=== PATIENT | male | born 1955 | race Caucasian/White ===

== ENCOUNTER 2016-06-15 17:12 | Inpatient (IN) | payer BC ==
[~2016-06-15] VITALS: Ht 182.9 cm; Wt 93.4 kg
--- NOTE | 2016-06-15 17:14 | NUR ---
Patient to ER bed 8 to gown for evaluation. Side rails up. Report given to La RESENDEZ.
--- NOTE | 2016-06-15 17:18 | NUR ---
Patient to ER C/O hemoptysis. Patient states that he has advanced lung cancer and started to cough bright red blood today. Patient has unreleaved cough reflex. AAOx4, constant coughing with bright red blood expectorant, rhonchi.
--- NOTE | 2016-06-15 17:19 | NUR ---
Room converted to negative pressure. Airborne precautions observed.
[2016-06-15 17:22] VITALS: BP 201/93; PULSE 131; RESP 18; TEMP 97.3; O2SAT 96
--- NOTE | 2016-06-15 17:38 | NUR ---
ER MD Jaeger at bedside for evaluation
[2016-06-15] MEDS ORDERED: NACL 0.9% 1,000 ML IV ONE (17:44)
[2016-06-15 17:57] LABS: BASOPHILS # (AUTO) 0.1 K/uL (0.0-0.2); EOSINOPHILS # (AUTO) 0.2 K/uL (0.0-0.4); HEMATOCRIT 47.9 % (36-54); HEMOGLOBIN 16.3 g/dL (14.0-18.0); LYMPHOCYTES # (AUTO) 1.6 K/uL (1.0-5.5); LYMPHOCYTES % (AUTO) 14.3 % (20.5-51.5); MEAN CORPUSCULAR HEMOGLOBIN 29 pg (27-31); MEAN CORPUSCULAR HGB CONC 34 % (32-36); MEAN CORPUSCULAR VOLUME 84 fL (79.0-98.0); MONOCYTES # (AUTO) 0.9 K/uL (0.0-1.0); MONOCYTES % (AUTO) 8.3 % (1.7-9.3); NEUTROPHILS # (AUTO) 8.6 K/uL (1.8-7.7); NEUTROPHILS % (AUTO) 74.4 % (40.0-70.0); PLATELET COUNT (AUTO) 169 K/uL (130-430); RED BLOOD CELL COUNT(AUTO) 5.67 MIL/uL (4.2-6.2); RED CELL DISTRIBUTION WIDTH 14.1 % (9.0-15.0); WHITE BLOOD COUNT (AUTO) 11.4 K/uL (4.8-10.8)
[2016-06-15 18:01] LABS: CALCIUM 9.5 mg/dL (8.4-11.0); CREATININE 1.64 mg/dL (0.55-1.30); POTASSIUM 3.1 mmol/L (3.5-5.1)
[2016-06-15 18:05] LABS: PROTHROMBIN TIME 11.1 SECS (9.5-12.5)
[2016-06-15 18:07] LABS: ALBUMIN 4.1 g/dL (3.4-4.8); TOTAL BILIRUBIN 0.4 mg/dL (0.0-1.0); TOTAL PROTEIN, SERUM 7.5 g/dL (6.4-8.3)
--- NOTE | 2016-06-15 18:34 | NUR ---
Medication reconciliation completed with information provided by - pill bottles from patient. Any prior medication reconciliation on file was reviewed and corrected.
[2016-06-15] MEDS ORDERED: KCL 20 mEq in 100 mL (PREMIX) 100 ML IV ONE (18:45)
[2016-06-15] MEDS ORDERED: LOSA50TA3 PO (18:55)
[2016-06-15] MEDS ORDERED: ZIA2.5/6.25 PO (18:55)
[2016-06-15] MEDS ORDERED: GLIM4TAB PO (18:55)
[2016-06-15] MEDS ORDERED: METF1000 PO (18:55)
[2016-06-15] MEDS ORDERED: LABETALOL 100 MG/ 20ML VIAL IVP ONE (19:00)
--- NOTE | 2016-06-15 19:19 | NUR ---
Patient will be admitted to care of DR JENKINS. Admitted to TELE unit. Will go to room 135. Belongings list completed. Summary report printed. Report given to MAL.
[2016-06-15 19:22] LABS: BILIRUBIN,URINE NEGATIVE (NEGATIVE); BLOOD, URINE NEGATIVE (NEGATIVE); CLARITY/URINE CLEAR (CLEAR); COLOR,URINE YELLOW (YELLOW); GLUCOSE,URINE NEGATIVE (NEGATIVE); KETONES,URINE NEGATIVE (NEGATIVE); LEUKOCYTE ESTERASE ,URINE NEGATIVE (NEGATIVE); NITRITE, URINE NEGATIVE (NEGATIVE); PROTEIN URINE 1+ (NEGATIVE); UROBILINOGEN,URINE 0.2 (0.2-1.0)
[2016-06-15 19:29] LABS: BACTERIA,URINE None Seen /HPF (None Seen); MUCUS,URINE None Seen /LPF (None Seen); RBC,URINE NONE SEEN /HPF (0-3); WBC,URINE 0-3 /HPF (0-3)
--- NOTE | 2016-06-15 19:41 | NUR ---
ADMISSION NOTE Received patient from ER via gurney. Patient admitted with diagnosis of Hemoptysis. Patient is awake, alert, oriented X 4. Patient oriented to hospital room, call light, toileting, pain management and safety-teach back done. Patient informed that Genesis will be his nurse and that their room number is 115. Personal belongings checked and Belongings List documented. Call light within reach.
[2016-06-15 19:45] VITALS: BP 171/117; PULSE 107; RESP 17; TEMP 98; O2SAT 95
--- NOTE | 2016-06-15 19:50 | NUR ---
INITIAL NOTE Patient resting on the bed comfortable. No acute distress. Respiration even and unlabored noted. On airborne isolation for diagnosis of hemoptysis. No vomiting at this time. Skin warm and dry to touch. IV intact to LFA, no redness, no swelling, no drainage. On KCL 20mEq at 50ml/hr from ER infusing well. Sister at bedside. Discussed the safety issue, use call light when need help, plan of care, and isolation precaution, verbally understanding. Safety measure maintained. Call light within reached. Bed in low position, side rails up. Will continue to monitor.
--- NOTE | 2016-06-15 20:05 | NUR ---
SEEN BY DR. GREGORY Sexton come to see the patient and talk to patient at bedside at this time.
[2016-06-15] MEDS ORDERED: amLODIPine BESYLATE 10 MG TABLET PO ONE (20:15)
[2016-06-15] MEDS ORDERED: ACETAMINOPHEN 650 MG SUPP.RECT RC PRN (20:15)
[2016-06-15] MEDS ORDERED: LevALBUTEROL HCL 1.25 MG/0.5 ML *CONC.* VIAL.NEB (XOPENEX CONC.) INH PRN (20:15)
[2016-06-15] MEDS: KCL 20 mEq in 0.45% NS 1000 mL 1,000 ML IV SCH (20:15)
[2016-06-15] MEDS: amLODIPine BESYLATE 10 MG TABLET PO SCH (20:15)
--- NOTE | 2016-06-15 20:31 | NUR ---
CONSULT: CONSULT CALLED FOR DR. DE LOS SANTOS I SPOKE WITH LUISANA PRINGLE DR. HOSPITALITY SPECIALIST IS JUSTIN
--- NOTE | 2016-06-15 20:35 | NUR ---
CONSULT: CONSULT CALLED FOR DR. REED I SPOKE WITH LUISANA EXCHANGE NUMBER I CALLED [phone]
--- NOTE | 2016-06-15 20:35 | NUR ---
RECEIVED THE CALL BACK FROM DR. ANDERSON, TERI Received the call back from Dr. Anderson, continuous miner doctor for [facility] Bunch. Informed MD the reason for consult, patient had vomited fresh blood this afternoon around 4:30. MD stated "keep the patient on isolation, will come later a while." Told MD patient already on isolation.
--- NOTE | 2016-06-15 20:38 | NUR ---
CONSULT: CONSULT CALLED FOR DR. RANDALL I SPOKE WITH LUISANA EXCHANGE NUMBER I CALLED [phone]
[2016-06-15] MEDS ORDERED: cefTRIAXone 1 GM VIAL ONE (20:44)
[2016-06-15] MEDS ORDERED: AZITHROMYCIN 500 MG/VIAL (ZITHROMAX) IV ONE (20:46)
--- NOTE | 2016-06-15 20:50 | NUR ---
RECEIVED THE CALL BACK FROM JEAN CARLOS JIMENEZ Received the call back from Dr. Ashton , covering doctor for Indy Tanner. Informed MD the reason for consult, patient had coughing fresh blood this afternoon around 4:30, and now on isolation. MD stated "will come tomorrow"
--- NOTE | 2016-06-15 20:58 | NUR ---
RECEIVED THE CALL BACK FROM TAMI APONTE Informed Dr. Pearson that the patient with BP= 171/117 and pulse =107 upon admission and the heart monitor showed uncontrolled A-fib. Home bp meds : Ziac 2.5-6.25mg Po daily, [place] Potassium 50mg PO BID. ordered Amiodarone 400mg PO TID and x 1 now, Metoprolol Succinate 50mg PO daily and x1 now, EKG in the morning. Orders read back and okay to .
[2016-06-15] MEDS: cefTRIAXone 1 GM in D5W 50 ML IV SCH (21:00)
[2016-06-15] MEDS: AZITHROMYCIN 500 MG in NS 250 ML IV SCH (21:00)
[2016-06-15] MEDS ORDERED: LevALBUTEROL HCL 1.25 MG/0.5 ML *CONC.* VIAL.NEB (XOPENEX CONC.) INH ONE (21:00)
[2016-06-15] MEDS ORDERED: METOPROLOL SUCCINATE 50 MG TAB.SR.24H (TOPROL XL) PO ONE (21:00)
--- NOTE | 2016-06-15 21:55 | NUR ---
ROUND Patient resting on the bed comfortable. Respiration even and unlabored noted. No acute distress. Safety measure maintained. Call light within reached. Bed in low position, side rails up. Continue to monitor.
[2016-06-15] MEDS ORDERED: AMIODARONE HCL 200 MG TABLET PO SCH (22:00)
[2016-06-15] MEDS: LOSARTAN POTASSIUM 50 MG TABLET (COZAAR) PO SCH (22:48)
[2016-06-16] VITALS (8 sets, daily range): BP systolic 148–177; BP diastolic 94–121; PULSE 88–103; RESP 17–20; TEMP 97.3–98.1; O2SAT 96–100
--- NOTE | 2016-06-16 | NUR ---
ROUND Patient resting on the bed with eyes closed. No SOB, no acute distress. Safety measure maintained. Call light within reached. Continue to monitor.
--- NOTE | 2016-06-16 01:45 | NUR ---
ROUND Patient resting on the bed with eyes closed. No SOB, no acute distress. Safety measure maintained. Call light within reached. Continue to monitor.
--- NOTE | 2016-06-16 03:29 | NUR ---
NOTED ENTER UNDER WRONG DOCTOR'S NAME OF THE ORDER Noted Dr. Pearson ordered the EKG, Amiodarone and Metoprolol Succinate early accidently entered under wrong doctor and corrected at this time.
[2016-06-16] MEDS: cloNIDine HCL 0.1 MG TABLET PO PRN ×2 (04:58→10:14)
--- NOTE | 2016-06-16 04:58 | NUR ---
CLONIDINE HCl 0.1MG GIVEN Report by SENIOR INSTRUMENTATION ENGINEER patient BP= 177/121. Rechecked patient LQ=603/117, no acute distress. Patient denied dizziness, headache or chest discomfort. Clonidine HCl 0.1mg Po given as ordered. Safety measure maintained. Call light within reached. Will continue to monitor.
[2016-06-16] MEDS: PROMETHAZINE 6.25 MG/ CODEINE 10 MG/ 5 ML PO SCH ×5 (06:36→23:44)
[2016-06-16 06:37] LABS: BASOPHILS # (AUTO) 0.1 K/uL (0.0-0.2); BASOPHILS % (AUTO) 0.8 % (0.0-2.0); EOSINOPHILS # (AUTO) 0.1 K/uL (0.0-0.4); HEMATOCRIT 43.9 % (36-54); HEMOGLOBIN 14.6 g/dL (14.0-18.0); LYMPHOCYTES % (AUTO) 9.1 % (20.5-51.5); MEAN CORPUSCULAR HEMOGLOBIN 29 pg (27-31); MEAN CORPUSCULAR HGB CONC 33 % (32-36); MEAN CORPUSCULAR VOLUME 87 fL (79.0-98.0); MONOCYTES # (AUTO) 0.9 K/uL (0.0-1.0); MONOCYTES % (AUTO) 8.5 % (1.7-9.3); NEUTROPHILS # (AUTO) 8.7 K/uL (1.8-7.7); NEUTROPHILS % (AUTO) 80.6 % (40.0-70.0); PLATELET COUNT (AUTO) 132 K/uL (130-430); RED BLOOD CELL COUNT(AUTO) 5.05 MIL/uL (4.2-6.2); RED CELL DISTRIBUTION WIDTH 14.3 % (9.0-15.0); WHITE BLOOD COUNT (AUTO) 10.8 K/uL (4.8-10.8)
[2016-06-16] MEDS: AMIODARONE HCL 200 MG TABLET PO SCH ×3 (06:37→22:29)
[2016-06-16] MEDS: INSULIN REGULAR, HUMAN 100 UNITS/ML, 10 ML VIAL (novoLIN R) SUBCUT PRN ×2 (06:37→22:24)
--- NOTE | 2016-06-16 06:55 | NUR ---
CLOSING NOTE Patient resting on the bed comfortable. No acute distress. Respiration even and unlabored. Continue on airborne isolation for coughing bleed. Sputum sample sent to lab at 0510. BS= 155mg/dl this morning and patient refused insulin 2 units of coverage and stated that "I never take insulin before and my sugar not that high as usually." Explained to patient when had infection, the blood sugar will be higher than usual. However, patient still refused. Also patient HM=312/118 one and half hour after given Clonidine HCL 0.1mg PO. Patient denied headache, chest discomfort, and dizziness. All need met. Hourly rounding during shift. Safety measure maintained. Call light within reached. Will endorse to morning shift nurse.
[2016-06-16 07:00] LABS: ANION GAP 10 (5-15); CALCIUM 9.1 mg/dL (8.4-11.0); CHLORIDE 103 mmol/L (98-107); CREATININE 1.16 mg/dL (0.55-1.30); GLUCOSE 146 mg/dL (70-99); POTASSIUM 3.1 mmol/L (3.5-5.1); SODIUM SERUM 143 mmol/L (136-145); UREA NITROGEN, BLOOD 28 mg/dL (8-21)
[2016-06-16] MEDS: LevALBUTEROL HCL 1.25 MG/0.5 ML *CONC.* VIAL.NEB (XOPENEX CONC.) INH SCH ×3 (07:12→23:14)
[2016-06-16 07:17] LABS: GFR AFRICAN AMERICAN 83 mL/min (>90)
[2016-06-16] MEDS: GLIMEPIRIDE 2 MG TABLET PO SCH ×3 (07:25→17:41)
--- NOTE | 2016-06-16 08:00 | NUR ---
AM NOTES PT AAOX4 WITH NO COMPLAINTS OF PAIN OR DISCOMFORT. NO SOB, DIFFICULTY BREATHING, DISTRESS OR COUGHING UP BLOOD NOTED. BRANCH ACCOUNT MANAGER READING UNCONTROLLED A-FIB. EDUCATED WITH FALL AND SAFETY PRECAUTIONS. VERBALIZED UNDERSTANDING. ISOLATION PRECAUTIONS ENFORCED AND IS IN A NEGATIVE PRESSURE ROOM. ENCOURAGED TO CALL FOR ASSISTANCE. CALL LIGHT WITHIN REACH. WILL MONITOR.
[2016-06-16] MEDS ORDERED: HYDROCHLOROTHIAZIDE PO SCH (09:00)
[2016-06-16] MEDS ORDERED: METOPROLOL SUCCINATE 50 MG TAB.SR.24H (TOPROL XL) PO SCH ×2 (09:00)
[2016-06-16] MEDS ORDERED: BISOPROL PO SCH (09:00)
[2016-06-16] MEDS ORDERED: HYDROCHLOROTHIAZIDE 25 MG TABLET (HCTZ) PO ONE (10:00)
--- NOTE | 2016-06-16 10:00 | NUR ---
ROUNDS PT AWAKE JUST GOT BACK FROM RADIOLOGY DEPARTMENT FOR CT SCAN. PT IS NOW GETTING A 2D ECHO. NO COMPLAINTS OF PAIN OR DISCOMFORT. NO DISTRESS OR SIGNS OF COUGHING UP BLOOD NOTED. WILL MONITOR.
[2016-06-16] MEDS: LOSARTAN POTASSIUM 50 MG TABLET (COZAAR) PO SCH ×2 (10:07→20:56)
[2016-06-16] MEDS: amLODIPine BESYLATE 10 MG TABLET PO SCH (10:08)
--- NOTE | 2016-06-16 10:15 | NUR ---
CLONIDINE ADMINISTERED CLONIDINE O.1MG BY MOUTH FOR BLOOD PRESSURE 172/119. WILL MONITOR.
[2016-06-16] MEDS ORDERED: POTASSIUM CHLORIDE 20 MEQ TAB.PRT.SR PO ONE (10:45)
--- NOTE | 2016-06-16 11:48 | NUR ---
REFUSED INSULIN BLOOD SUGAR MONITOR 182. PATIENT REFUSED INSULIN FOR SLIDING SCALE ADMINISTRATION.
--- NOTE | 2016-06-16 13:30 | NUR ---
ROUNDS PT ASLEEP. NO SIGNS OF FACIAL GRIMACING FOR PAIN OR DISCOMFORT. NO DISTRESS NOTED. CALL LIGHT WITHIN REACH. WILL MONITOR.
[2016-06-16] MEDS ORDERED: LISINOPRIL 20 MG TABLET PO ONE (14:45)
[2016-06-16] MEDS: KCL 20 mEq in 0.45% NS 1000 mL 1,000 ML IV SCH ×2 (15:03→22:29)
--- NOTE | 2016-06-16 15:07 | NUR ---
[place]: Pt sitting up in bed. No acute signs of distress noted. Iv intact and infusing fluids well to LUE with no redness or swelling noted to site. No cough or acute signs of bleeding noted. Pt denies bloody/pink-tinged sputum this shift. Pt denies chest pain, nausea, and dizziness. No SOB noted. Pt denies headache. Call light in reach. Pt is able to make needs known and return demonstrate use of call light.
--- NOTE | 2016-06-16 16:48 | NUR ---
ROUNDS PT ASLEEP. NO SIGNIFICANT CHANGES NOTED. CALL LIGHT WITHIN REACH. WILL MONITOR.
[2016-06-16] MEDS: metFORMIN HCL 500 MG TABLET PO SCH (17:40)
--- NOTE | 2016-06-16 18:50 | NUR ---
CLOSING NOTES PT ASLEEP. NO SIGNS OF FACIAL GRIMACING FOR PAIN OR DISCOMFORT. NO DISTRESS NOTED. WILL ENDORSE CARE TO INCOMING NURSE.
--- NOTE | 2016-06-16 20:00 | NUR ---
INITIAL NOTES: PT IS A/O X4 ;DENIED ANY COMPLAINTS OF PAIN OR DISCOMFORT. NO SOB, DIFFICULTY BREATHING, DISTRESS OR COUGHING UP BLOOD NOTED. TELEMONITOR RUNNING CONTROLLED AFIB ; ISOLATION PRECAUTIONS ENFORCED AND IS IN A NEGATIVE PRESSURE ROOM. IV ON THE LEFT FA 18 G, FLUSHED WELL ; IV FLUID INFUSING WELL ;ENCOURAGED TO CALL FOR ASSISTANCE. EDUCATED WITH FALL AND SAFETY PRECAUTIONS. VERBALIZED UNDERSTANDING. CALL LIGHT WITHIN REACH.BED IN LOW AND LOCK POSITION ;ASSESSMENT DONE ; WILL MONITOR.
[2016-06-16] MEDS: cefTRIAXone 1 GM in D5W 50 ML IV SCH (20:57)
--- NOTE | 2016-06-16 22:00 | NUR ---
MEDICATION: DUE MEDS GIVEN ; PT ASKED TO RECHECK THE BS LATER WILL RECHECK .
[2016-06-16] MEDS: AZITHROMYCIN 500 MG in NS 250 ML IV SCH (22:24)
--- NOTE | 2016-06-16 22:30 | NUR ---
MEDICATION: BS 160; PT REFUSED TO TAKE INSULIN , PER REPORT MD IS AWARE THAT PT IS REFUSING INSULIN .ALL OTHER DUE MEDS GIVEN ; WILL CONTINUE TO MONITOR.
[2016-06-17] VITALS (7 sets, daily range): BP systolic 149–171; BP diastolic 96–120; PULSE 82–114; RESP 17–20; TEMP 97.4–98.1; O2SAT 96–99
--- NOTE | 2016-06-17 00:20 | NUR ---
RN ROUNDS: PT IS SLEEPING; NOT IN ANY ACUTE DISTRESS; WILL CONTINUE TO MONITOR.
--- NOTE | 2016-06-17 02:00 | NUR ---
RN ROUNDS: PT IS SLEEPING COMFORTABLY ; NOT IN ANY ACUTE DISTRESS; WILL CONTINUE TO MONITOR.
--- NOTE | 2016-06-17 04:05 | NUR ---
RN ROUNDS: PT IS SLEEPING , NOT IN ANY ACUTE DISTRESS; WILL CONTINUE TO MONITOR.
[2016-06-17] MEDS: PROMETHAZINE 6.25 MG/ CODEINE 10 MG/ 5 ML PO SCH ×4 (05:36→23:50)
[2016-06-17] MEDS: AMIODARONE HCL 200 MG TABLET PO SCH ×3 (05:37→21:13)
--- NOTE | 2016-06-17 06:10 | NUR ---
RN NOTES: DUE MEDS GIVEN ; PTS BP IS HIGH WILL RECHECK AND IF NEEDED WILL GIVE CLONIDINE , NOTICED THAT PT HAD A SOFT FOAMED BLACK TARRY STOOL , WILL INFORM ; LOIDA PENA COLLECTED AND SENT TO THE LAB .
[2016-06-17] MEDS: cloNIDine HCL 0.1 MG TABLET PO PRN ×2 (06:46→13:09)
[2016-06-17] MEDS: GLIMEPIRIDE 2 MG TABLET PO SCH ×3 (06:46→16:36)
--- NOTE | 2016-06-17 07:20 | NUR ---
CLOSING NOTES: REPORT GIVEN TO PRIMARY NURSE , INFORMED NURSE THAT PT HAD BLACK TARRY STOOL AND ONE TIME HEMOPTYSIS WHILE COLLECTING AFB SAMPLE ; ALSO INFORMED NURSE TO RECHECK THE BP ; REPORT GIVEN TO RN . Addendum: 06/17/16 at 0806 by Jenelle Harris RN CORRECTION : REPORT GIVEN TO PRIMARY NURSE
[2016-06-17 07:32] LABS: BASOPHILS # (AUTO) 0.1 K/uL (0.0-0.2); BASOPHILS % (AUTO) 0.5 % (0.0-2.0); EOSINOPHILS # (AUTO) 0.1 K/uL (0.0-0.4); EOSINOPHILS % (AUTO) 1.3 % (0.0-4.0); HEMATOCRIT 43.5 % (36-54); HEMOGLOBIN 14.5 g/dL (14.0-18.0); LYMPHOCYTES # (AUTO) 0.8 K/uL (1.0-5.5); LYMPHOCYTES % (AUTO) 8.2 % (20.5-51.5); MEAN CORPUSCULAR HEMOGLOBIN 29 pg (27-31); MEAN CORPUSCULAR HGB CONC 33 % (32-36); MEAN CORPUSCULAR VOLUME 86 fL (79.0-98.0); MONOCYTES # (AUTO) 0.6 K/uL (0.0-1.0); MONOCYTES % (AUTO) 5.7 % (1.7-9.3); NEUTROPHILS # (AUTO) 8.6 K/uL (1.8-7.7); NEUTROPHILS % (AUTO) 84.3 % (40.0-70.0); PLATELET COUNT (AUTO) 152 K/uL (130-430); RED BLOOD CELL COUNT(AUTO) 5.03 MIL/uL (4.2-6.2); RED CELL DISTRIBUTION WIDTH 14.1 % (9.0-15.0); WHITE BLOOD COUNT (AUTO) 10.3 K/uL (4.8-10.8)
[2016-06-17 07:47] LABS: CALCIUM 8.8 mg/dL (8.4-11.0); CREATININE 1.2 mg/dL (0.55-1.30); POTASSIUM 3.1 mmol/L (3.5-5.1)
[2016-06-17] MEDS: LevALBUTEROL HCL 1.25 MG/0.5 ML *CONC.* VIAL.NEB (XOPENEX CONC.) INH SCH ×3 (07:48→23:45)
--- NOTE | 2016-06-17 08:00 | NUR ---
AM NOTES PT AAOX4 WITH COMPLAINTS OF MILD BACK PAIN AND DISCOMFORT TO BACK . STATES "I JUST DON'T FEEL TOO COMFORTABLE WITH THIS HOSPITAL BED." NO SOB, DIFFICULTY BREATHING, DISTRESS OR COUGHING UP BLOOD NOTED. LANDSCAPE FOREMAN READING UNCONTROLLED A-FIB. EDUCATED WITH FALL AND SAFETY PRECAUTIONS. VERBALIZED UNDERSTANDING. ISOLATION PRECAUTIONS ENFORCED. PATIENT IS IN A NEGATIVE PRESSURE ROOM. ENCOURAGED TO CALL FOR ASSISTANCE. PT REFUSED TO HAVE SCD PUT ON. CALL LIGHT WITHIN REACH. WILL MONITOR.
[2016-06-17 08:32] LABS: ERYTHROCYTE SEDIMENTATION RATE 5 MM/HR (0-15)
[2016-06-17] MEDS: metFORMIN HCL 500 MG TABLET PO SCH ×2 (08:39→18:27)
[2016-06-17] MEDS: METOPROLOL SUCCINATE 50 MG TAB.SR.24H (TOPROL XL) PO SCH (08:40)
[2016-06-17] MEDS: LOSARTAN POTASSIUM 50 MG TABLET (COZAAR) PO SCH ×2 (08:40→21:14)
[2016-06-17] MEDS: LISINOPRIL 20 MG TABLET PO SCH (08:41)
[2016-06-17] MEDS: amLODIPine BESYLATE 10 MG TABLET PO SCH (08:41)
[2016-06-17] MEDS: HYDROCHLOROTHIAZIDE 25 MG TABLET (HCTZ) PO SCH (08:42)
--- NOTE | 2016-06-17 10:00 | NUR ---
ROUNDS PT AWAKE RESTING IN BED FEELING ANXIOUS ABOUT WHEN HE CAN GO HOME. NO VISIBLE COUGHING UP OF BLOOD NOTED. NO SIGNIFICANT CHANGES NOTED. ENCOURAGED TO CALL FOR ASSISTANCE. WILL MONITOR.
--- NOTE | 2016-06-17 10:20 | NUR ---
Dr. Eliel BROWNLEE doing rounds. Plan of care discussed with patient.
[2016-06-17] MEDS ORDERED: DOXYCYCLINE HYCLATE 100 MG CAPSULE PO ONE (11:00)
--- NOTE | 2016-06-17 12:00 | NUR ---
ROUNDS PT EATING LUNCH. NO SIGNIFICANT CHANGES NOTED. BLOOD SUGAR MONITOR 131. NO INSULIN SLIDING SCALE NEEDED. ENCOURAGED TO CALL FOR ASSISTANCE. WILL MONITOR.
--- NOTE | 2016-06-17 12:30 | NUR ---
NAUSEA PT FELT SLIGHTLY NAUSEATED. VERY SMALL AMOUNT OF PHLEGM AND SALIVA WAS VOMITED. STATES "I FEEL BETTER NOW THAT I VOMITED." WILL MONITOR.
--- NOTE | 2016-06-17 13:10 | NUR ---
CLONIDINE MEDICATED PATIENT WITH CLONIDINE FOR BLOOD PRESSURE 167/101. WILL MONITOR.
[2016-06-17] MEDS ORDERED: POTASSIUM CHLORIDE 20 MEQ TAB.PRT.SR PO ONE (15:00)
--- NOTE | 2016-06-17 15:00 | NUR ---
ROUNDS PT ASLEEP. NO SIGNS OF FACIAL GRIMACING FOR PAIN OR DISCOMFORT. NO DISTRESS NOTED. WILL CONTINUE TO MONITOR.
--- NOTE | 2016-06-17 17:00 | NUR ---
ROUNDS PT AWAKE. NO SIGNIFICANT CHANGES NOTED. BLOOD SUGAR MONITOR 92. WILL CONTINUE TO MONITOR.
--- NOTE | 2016-06-17 18:00 | NUR ---
DR. GREGORY BROWNLEE DOING ROUNDS. PLAN OF CARE DISCUSSED.
--- NOTE | 2016-06-17 18:30 | NUR ---
CLOSING NOTES PT STILL EATING DINNER. NO COMPLAINTS OF PAIN OR DISCOMFORT. NO DISTRESS NOTED. WILL ENDORSE CARE TO INCOMING NURSE.
[2016-06-17] MEDS: KCL 20 mEq in 0.45% NS 1000 mL 1,000 ML IV SCH (18:51)
--- NOTE | 2016-06-17 19:50 | NUR ---
INITIAL NOTES; Pt is a/ox4, resting in bed. Vital signs 97.4,20, 89, 171/110, o4our=35% r/a. Pt denies any pain,sob,or any acute distress this time. Lung sounds eloy anterior eloy lobes clear, diminished eloy posterior lower lobes. Airborne Isolation precaution. Abdomen soft & distended, bs present. IV site of left f/a patent, no s/s any infiltration noted. IVF 1/2 NS + 20 MEQ KCL @ 75ml/hr. Eloy lower pedis present upon palp,no edema noted. Fall precaution in place. Pt is able to ambulate with slow steady gaits by self. All safety measures in place. Discussed poc, all safety measures, or if experiencing chest pain, pain,sob, or any acute distress to use call light for assistance, pt verbalized understanding. Call light w/in reach. Continue to monitor pt.
[2016-06-17] MEDS: AZITHROMYCIN 500 MG in NS 250 ML IV SCH (21:12)
[2016-06-17] MEDS: DOXYCYCLINE HYCLATE 100 MG CAPSULE PO SCH (21:13)
--- NOTE | 2016-06-17 21:13 | NUR ---
ROUNDS; -Pt is resting in bed. Pt denies any pain,sob,or any acute distress. Gave all po and IVPB medications, pt tolerated we. IV site patent, no s/s any infiltration noted. Call light w/in reach. Continue to monitor pt. Addendum: 06/18/16 at 0139 by Phil Ariza RN ADDITIONAL NOTES; PT IS ASYMPTOMATIC,NO S/S ANY HYPOGLYCEMIC EFFECT NOTED. BLOOD SUGAR IS 76,NO SSI COVERAGE. GAVE A CUP OF JELLO, 4 OZ APPLE JUICE AND CRACKERS.
[2016-06-17] MEDS: cefTRIAXone 1 GM in D5W 50 ML IV SCH (21:17)
--- NOTE | 2016-06-17 23:50 | NUR ---
ROUNDS; -Pt is resting in bed. Pt coughed off spot of blood. Pt complaint of nausea, refused me to ask MD for N/V medications. Gave cough medication, pt tolerated well. Call light w/in reach. Continue to monitor pt.
[2016-06-18] VITALS (8 sets, daily range): BP systolic 151–176; BP diastolic 88–123; PULSE 75–111; RESP 16–20; TEMP 97.6–99.3; O2SAT 95–99
[2016-06-18] MEDS: cloNIDine HCL 0.1 MG TABLET PO PRN ×4 (00:07→23:51)
--- NOTE | 2016-06-18 00:07 | NUR ---
ROUNDS; BREATHING TXMT GIVEN BY BENITO THERAPIST -Pt is resting in bed. Pt denies any pain,sob,or any acute distress. Vital signs taken 97.6, 20, 111, 176/117, f5bbi=12% r/a, elevated bp 176/117, gave Clonidine 0.1mg po. Call light w/in reach. Continue to monitor pt.
--- NOTE | 2016-06-18 02:05 | NUR ---
ROUNDS; -Pt is resting in bed. No s/s any pain,sob,or any acute distress noted. IV site patent, no s/s any infiltration noted. Call light w/in reach. Continue to monitor pt.
--- NOTE | 2016-06-18 03:46 | NUR ---
ROUNDS; GAVE WARM BLANKET-PT STATED THAT HE IS COLD AND TURNED OFF FAN -Pt is resting in bed. No s/s any pain,sob,or any acute distress noted. IV site patent, no s/s any infiltration noted. Call light w/in reach. Continue to monitor pt.
[2016-06-18] MEDS: PROMETHAZINE 6.25 MG/ CODEINE 10 MG/ 5 ML PO SCH ×4 (06:14→23:14)
[2016-06-18] MEDS: AMIODARONE HCL 200 MG TABLET PO SCH ×3 (06:14→21:14)
[2016-06-18] MEDS: GLIMEPIRIDE 2 MG TABLET PO SCH ×3 (06:14→17:00)
--- NOTE | 2016-06-18 06:14 | NUR ---
ROUNDS; Pt is resting in bed. Pt denies any pain,sob,or any acute distress this time. IV site of left f/a patent, no s/s any infiltration noted. IVF 1/2NS + 20 MEQ KCL @ 75ml/hr. All safety measures in place. Call light w/in reach.
[2016-06-18] MEDS: KCL 20 mEq in 0.45% NS 1000 mL 1,000 ML IV SCH (06:16)
--- NOTE | 2016-06-18 06:52 | NUR ---
CLOSING NOTES; Pt is resting in bed. Pt denies any pain,sob,or any acute distress this time. IV site of left f/a patent,drsg cdi. All safety measures in place. Call light w/in reach. Addendum: 06/18/16 at 0727 by Phil Ariza RN ADDITIONAL NOTE ENTRY---ENDORSED TO KAYE TO COLLECT AFB SPUTUM. YASMIN STATED THAT HE WILL COLLECT WHEN PT COUGH OUT SOME SPUTUM.
[2016-06-18] MEDS: LevALBUTEROL HCL 1.25 MG/0.5 ML *CONC.* VIAL.NEB (XOPENEX CONC.) INH SCH ×3 (07:00→23:06)
--- NOTE | 2016-06-18 07:20 | NUR ---
HANDOFF ROUNDS, NEEDS MET AT THIS TIME.
[2016-06-18] MEDS: metFORMIN HCL 500 MG TABLET PO SCH ×2 (07:53→17:09)
[2016-06-18 08:33] LABS: CALCIUM 9.4 mg/dL (8.4-11.0); CREATININE 1.2 mg/dL (0.55-1.30); POTASSIUM 3.4 mmol/L (3.5-5.1)
[2016-06-18] MEDS: DOXYCYCLINE HYCLATE 100 MG CAPSULE PO SCH ×2 (09:24→21:15)
[2016-06-18] MEDS: HYDROCHLOROTHIAZIDE 25 MG TABLET (HCTZ) PO SCH (09:24)
[2016-06-18] MEDS: METOPROLOL SUCCINATE 50 MG TAB.SR.24H (TOPROL XL) PO SCH (09:25)
[2016-06-18] MEDS: LISINOPRIL 20 MG TABLET PO SCH (09:25)
[2016-06-18] MEDS: amLODIPine BESYLATE 10 MG TABLET PO SCH (09:26)
[2016-06-18] MEDS: LOSARTAN POTASSIUM 50 MG TABLET (COZAAR) PO SCH ×2 (09:26→21:13)
--- NOTE | 2016-06-18 09:30 | NUR ---
ROUNDS TO PATIENT. NEEDS MET AT THIS TIME.
[2016-06-18] MEDS ORDERED: POTASSIUM CHLORIDE 20 MEQ TAB.PRT.SR PO ONE (11:00)
--- NOTE | 2016-06-18 11:30 | NUR ---
ROUNDS AND ACCUCHECK DUE. WILL MONITOR FOR NEEDS.
--- NOTE | 2016-06-18 13:00 | NUR ---
PATIENT ROUNDS NEEDS MET AT THIS TIME.
--- NOTE | 2016-06-18 15:00 | NUR ---
EXTRA SNACK REQUEST FOR SUGAR FREE JELLO SENT TO DIETARY.
--- NOTE | 2016-06-18 17:24 | NUR ---
ROUNDS TO PATIENT. DECREASE BLOOD SUGAR. ASYMPTOMATIC. GIVEN TWO ORANGE JUICES. WILL RECHECK.
--- NOTE | 2016-06-18 19:38 | NUR ---
notes received the pt from the day nurse.pt a/a/ox4 no c/o pain or difficulty breathing.no c/o coughing up blood.pt watching tv .vs taken.pt in isolationmonitor in place.pt refusing scd.iv to lt forearm is intact,no redness or swelling noted.will continue to monitor.
[2016-06-18] MEDS: cefTRIAXone 1 GM in D5W 50 ML IV SCH (21:22)
[2016-06-18] MEDS: AZITHROMYCIN 500 MG in NS 250 ML IV SCH (21:22)
--- NOTE | 2016-06-18 21:34 | NUR ---
notes pt awake ,alert waiting for the RN to hang the antibiotic so he can sleep.
--- NOTE | 2016-06-18 22:16 | NUR ---
notes was called to the pts room who showed me a cup with approx.5cc of blood and stated he coughed it up.also stated that the amount was much less than the amount that he coughed up the day he was admitted.charge nurse was notified.
--- NOTE | 2016-06-18 23:34 | NUR ---
notes team coordinator at the bedside for vs.continue to monitor.
--- NOTE | 2016-06-18 23:54 | NUR ---
notes bp 163/102 clonidine .1mg given po.continue to monitor.
[2016-06-19 00:59] VITALS: BP 162/102; PULSE 101; RESP 18; TEMP 98.1; O2SAT 98
--- NOTE | 2016-06-19 01:23 | NUR ---
notes pt sleeping,no distress noted.continue to monitor.
--- NOTE | 2016-06-19 03:17 | NUR ---
notes pt sleeping,no respiratory difficulty noted.continue to monitor.
[2016-06-19 04:00] VITALS: BP 167/110; PULSE 110; RESP 18; TEMP 98.2; O2SAT 99
--- NOTE | 2016-06-19 04:50 | NUR ---
notes vs taken by the under water assistant bp 169/110 hr 110.charge nurse aware .will give clonidine in one hour.
[2016-06-19] MEDS: PROMETHAZINE 6.25 MG/ CODEINE 10 MG/ 5 ML PO SCH ×4 (05:43→23:03)
[2016-06-19] MEDS: AMIODARONE HCL 200 MG TABLET PO SCH ×3 (05:44→21:02)
[2016-06-19] MEDS: cloNIDine HCL 0.1 MG TABLET PO PRN ×2 (05:44→21:00)
[2016-06-19] MEDS: GLIMEPIRIDE 2 MG TABLET PO SCH ×3 (06:01→17:43)
--- NOTE | 2016-06-19 06:20 | NUR ---
closing notes accucheck was 122,no insulin needed per s/s.clonidine 0.1mg given po for a bp of 167/110.pt with no complaints.will endorse the care of the pt to the day nurse.
--- NOTE | 2016-06-19 06:32 | NUR ---
notes bp now is 163/101 pt asymptomatic will continue to monitor.
[2016-06-19] MEDS: amLODIPine BESYLATE 10 MG TABLET PO SCH (08:17)
[2016-06-19] MEDS: LISINOPRIL 20 MG TABLET PO SCH (08:17)
[2016-06-19] MEDS: DOXYCYCLINE HYCLATE 100 MG CAPSULE PO SCH ×2 (08:17→20:59)
[2016-06-19] MEDS: metFORMIN HCL 500 MG TABLET PO SCH ×2 (08:18→17:43)
[2016-06-19] MEDS: METOPROLOL SUCCINATE 50 MG TAB.SR.24H (TOPROL XL) PO SCH (08:19)
[2016-06-19] MEDS: LOSARTAN POTASSIUM 50 MG TABLET (COZAAR) PO SCH ×2 (08:19→21:00)
[2016-06-19] MEDS: HYDROCHLOROTHIAZIDE 25 MG TABLET (HCTZ) PO SCH (08:20)
--- NOTE | 2016-06-19 08:31 | NUR ---
Initial Note Patient A/O x 4. Respirations even and unlabored. IV access patent and infusing per MD orders. Denies cough and difficulty breathing at this time. Use of call light reviewed with patient. Patient stated responsiveness to call light has been "really good". Fall and safety precautions in place. BP slightly elevated, denies headache at this time, scheduled medications administered. Will continue to monitor closely.
[2016-06-19] MEDS ORDERED: LIDOCAINE MPF 2% 5mL VIAL INH ONE (09:15)
--- NOTE | 2016-06-19 09:59 | NUR ---
Notes Dr. Vickers has seen patient and spoke with him about need for bronchoscopy. Copy of consent given to patient. He is reading it over and said to return in a few minutes.
--- NOTE | 2016-06-19 10:35 | NUR ---
Notes Patient consented for bronchoscopy, consent signed, placed in chart. Dr. Vickers has been informed procedure must be in done in patient's room due to isolation. She stated that is fine.
--- NOTE | 2016-06-19 10:49 | NUR ---
Notes Loren from GI lab has been informed that Dr. Vickers is OK with bronchoscopy being done in patient's room.
[2016-06-19 12:48] VITALS: BP 143/95; PULSE 98; RESP 17; TEMP 99; O2SAT 100
--- NOTE | 2016-06-19 13:03 | NUR ---
Notes Patient continues to be NPO. No acute distress noted. Patient stated cough has decreased, small amount of sputum coughed up but no blood noted.
--- NOTE | 2016-06-19 13:40 | NUR ---
Notes Patient taken to GI lab for procedure. Isolation and safety precautions maintained.
[2016-06-19] MEDS ORDERED: LIDOCAINE 1%, 20 ML MDV 80 ML ONE (13:52)
[2016-06-19] MEDS ORDERED: LIDOCAINE 2% JELLY UROJECT 10 ML MM ONE (13:52)
[2016-06-19] MEDS: MIDAZOLAM HCL 5 MG/5 ML VIAL ONE ×6 (14:18→14:42)
[2016-06-19] MEDS: MEPERIDINE HCL/PF 50 MG/ML AMP ONE ×4 (14:18→14:25)
[2016-06-19] MEDS: LevALBUTEROL HCL 1.25 MG/0.5 ML *CONC.* VIAL.NEB (XOPENEX CONC.) INH SCH ×2 (15:00→15:41)
--- NOTE | 2016-06-19 16:17 | NUR ---
Notes Patient back in room. No acute distress. Verbalized he is ok and wants to take a quick nap.
[2016-06-19 16:18] VITALS: BP 146/95; PULSE 96; RESP 17; TEMP 98.2; O2SAT 96
[2016-06-19 16:21] VITALS: BP 148/99; PULSE 89; RESP 18; TEMP 98.7; O2SAT 100
--- NOTE | 2016-06-19 18:44 | NUR ---
Closing Notes Patient needs met throughout shift. Remained free of respiratory distress throughout shift. Will continue to monitor until patientcare is endorsed to oncoming shift nurse.
[2016-06-19 19:40] VITALS: BP 167/104; PULSE 96; RESP 16; TEMP 99.2; O2SAT 100
--- NOTE | 2016-06-19 19:40 | NUR ---
NOTES RECEIVED THE PT FROM THE DAY NURSE.PT A.A.OX4.NO C/O SOB ,NO COUGHING UP BLOOD.AND NO PAIN.VS TAKEN.PT REMAINS IN ISOLATION.REFUSING SCD.PORT.CXR TAKEN.CALL LIGHT WITHIN REACH,SAFETY MEASURES IN PROGRESS..CONTINUE TO MONITOR.
--- NOTE | 2016-06-19 21:30 | NUR ---
NOTES PT WATCHING TV WITH NO COMPLAINTS.
[2016-06-19] MEDS: AZITHROMYCIN 500 MG in NS 250 ML IV SCH (22:25)
[2016-06-19] MEDS: cefTRIAXone 1 GM in D5W 50 ML IV SCH (22:25)
--- NOTE | 2016-06-19 22:46 | NUR ---
NOTES ACCUCHECK WAS 54 ORANE JUICE GIVEN PO,PT REMAINS ALERT AND ORIENTED. Addendum: 06/19/16 at 2247 by Howard Burkett LVN ORANGE NOT ORANE
--- NOTE | 2016-06-19 23:14 | NUR ---
ACCUCHECK RE CHECKED AND IS 83.PT WATCHING TV WITH NO COMPLAINTS.
--- NOTE | 2016-06-19 23:54 | NUR ---
NOTES MED NEB TREATMENT STARTED BY RESPIRATORY THERAPIST.
[2016-06-20] VITALS: BP 154/102; PULSE 101; RESP 17; TEMP 98.2; O2SAT 98
--- NOTE | 2016-06-20 01:48 | NUR ---
NOTES PT WATCHING TV WITH NO COMPLAINTS.
--- NOTE | 2016-06-20 03:24 | NUR ---
NOTES PT SLEEPING,CALL LIGHT WITHIN REACH.CONTINUE TO MONITOR.
[2016-06-20 04:00] VITALS: BP 158/98; PULSE 102; RESP 18; TEMP 98.4; O2SAT 98
--- NOTE | 2016-06-20 05:18 | NUR ---
notes pt remains asleep ,no distress noted.continue to monitor.
[2016-06-20] MEDS: PROMETHAZINE 6.25 MG/ CODEINE 10 MG/ 5 ML PO SCH ×4 (06:18→23:29)
[2016-06-20] MEDS: GLIMEPIRIDE 2 MG TABLET PO SCH ×3 (06:18→17:00)
[2016-06-20] MEDS: LevALBUTEROL HCL 1.25 MG/0.5 ML *CONC.* VIAL.NEB (XOPENEX CONC.) INH SCH ×4 (06:18→23:00)
[2016-06-20] MEDS: AMIODARONE HCL 200 MG TABLET PO SCH ×3 (06:19→21:04)
--- NOTE | 2016-06-20 06:31 | NUR ---
NOTES ACCUCHECK WAS 65 ,ORANGE JUICE GIVEN PO.CONTINUE TO MONITOR.
--- NOTE | 2016-06-20 06:51 | NUR ---
CLOSING NOTES REPEAT ACCUCHECK WAS 124,PT WATCHING TV WITH NO COMPLAINTS.
[2016-06-20 08:00] VITALS: BP 162/108; PULSE 98; RESP 17; TEMP 98.4; O2SAT 96
--- NOTE | 2016-06-20 08:00 | NUR ---
Initial Note Patient A/O x 4. Respirations even and unlabored. IV access patent. Denies cough and difficulty breathing at this time. Use of call light reviewed with patient. Fall and safety precautions in place. BP slightly elevated, denies headache at this time, scheduled medications administered. Will continue to monitor closely.
[2016-06-20] MEDS: METOPROLOL SUCCINATE 50 MG TAB.SR.24H (TOPROL XL) PO SCH ×2 (08:49→21:05)
[2016-06-20] MEDS: LOSARTAN POTASSIUM 50 MG TABLET (COZAAR) PO SCH ×2 (08:49→21:07)
[2016-06-20] MEDS: metFORMIN HCL 500 MG TABLET PO SCH ×2 (08:49→17:45)
[2016-06-20] MEDS: HYDROCHLOROTHIAZIDE 25 MG TABLET (HCTZ) PO SCH (08:50)
[2016-06-20] MEDS: amLODIPine BESYLATE 10 MG TABLET PO SCH (08:50)
[2016-06-20] MEDS: DOXYCYCLINE HYCLATE 100 MG CAPSULE PO SCH ×2 (08:51→21:03)
[2016-06-20] MEDS: LISINOPRIL 20 MG TABLET PO SCH (08:51)
[2016-06-20] MEDS: cloNIDine HCL 0.1 MG TABLET PO PRN ×2 (11:52→19:47)
--- NOTE | 2016-06-20 12:00 | NUR ---
Notes PO diabetes medication not administered due to trending low blood glucose. Oral intake has been adequate. Juice and lunch provided to patient. No acute distress noted.
[2016-06-20 12:51] VITALS: BP 167/117; PULSE 90; RESP 17; TEMP 97.8; O2SAT 99
[2016-06-20 13:38] VITALS: Ht 182.9 cm; Wt 93.4 kg
--- NOTE | 2016-06-20 15:27 | NUR ---
Notes Patient denies discomfort and difficulty breathing at this time. Able to ambulate independently to restroom, gait steady.
--- NOTE | 2016-06-20 15:58 | NUR ---
Notes Patient stated he felt nauseated and vomited small amount, then flushed it down the toilet. Stated he feels fine. Blood glucose 84 at this time.
[2016-06-20 16:28] VITALS: BP 171/112; PULSE 100; RESP 17; TEMP 97.8; O2SAT 96
--- NOTE | 2016-06-20 18:00 | NUR ---
Notes Patient able to eat independently. No aspiration noted. Good appetite at this time.
[2016-06-20 19:30] VITALS: BP 179/115; PULSE 95; RESP 18; TEMP 98.7; O2SAT 97
--- NOTE | 2016-06-20 19:30 | NUR ---
notes received the pt from the day nurse. pt a/a/ox4 no c/o pain or coughing of blood ,no c/o sob.monitor in place and shows a fib.pt not in isolation and wants to walk in the haas.will give clonidine for a bp of 179/115.iv intact to lt forearm .will continue to monitor.
--- NOTE | 2016-06-20 19:30 | NUR ---
Closing Note Patient needs met throughout shift. Patient care has been endorsed to oncoming shift nurse.
[2016-06-20] MEDS: cefTRIAXone 1 GM in D5W 50 ML IV SCH (21:01)
--- NOTE | 2016-06-20 21:10 | NUR ---
notes accucheck was 76,pt watching tv with no complaints.
--- NOTE | 2016-06-20 23:30 | NUR ---
notes pt watching tv with no complaints.continue to monitor.
[2016-06-21 00:19] VITALS: BP 162/102; PULSE 110; RESP 17; TEMP 97.8; O2SAT 98
--- NOTE | 2016-06-21 01:47 | NUR ---
notes pt sleeping,no distress noted.continue to monitor.
--- NOTE | 2016-06-21 03:18 | NUR ---
notes pt sleeping,call light within reach.continue to monitor.
[2016-06-21 04:55] VITALS: BP 144/71; PULSE 108; RESP 17; TEMP 98.1; O2SAT 99
[2016-06-21] MEDS: AMIODARONE HCL 200 MG TABLET PO SCH (06:00)
[2016-06-21] MEDS: PROMETHAZINE 6.25 MG/ CODEINE 10 MG/ 5 ML PO SCH ×4 (06:00→23:01)
[2016-06-21] MEDS: GLIMEPIRIDE 2 MG TABLET PO SCH ×3 (06:01→17:00)
--- NOTE | 2016-06-21 06:10 | NUR ---
closing notes pt awaken.accucheck was 103,pt with no complaints,will endorse the care of the pt to the day nurse.
[2016-06-21] MEDS: LevALBUTEROL HCL 1.25 MG/0.5 ML *CONC.* VIAL.NEB (XOPENEX CONC.) INH SCH ×3 (07:15→23:00)
[2016-06-21 07:41] LABS: BASOPHILS # (AUTO) 0.1 K/uL (0.0-0.2); BASOPHILS % (AUTO) 0.5 % (0.0-2.0); EOSINOPHILS # (AUTO) 0.1 K/uL (0.0-0.4); EOSINOPHILS % (AUTO) 0.9 % (0.0-4.0); HEMATOCRIT 43.3 % (36-54); HEMOGLOBIN 14.6 g/dL (14.0-18.0); MEAN CORPUSCULAR HEMOGLOBIN 30 pg (27-31); MEAN CORPUSCULAR HGB CONC 34 % (32-36); MEAN CORPUSCULAR VOLUME 89 fL (79.0-98.0); MONOCYTES # (AUTO) 1.1 K/uL (0.0-1.0); NEUTROPHILS # (AUTO) 11.7 K/uL (1.8-7.7); NEUTROPHILS % (AUTO) 83.6 % (40.0-70.0); PLATELET COUNT (AUTO) 162 K/uL (130-430); RED BLOOD CELL COUNT(AUTO) 4.88 MIL/uL (4.2-6.2); RED CELL DISTRIBUTION WIDTH 14.4 % (9.0-15.0)
--- NOTE | 2016-06-21 08:00 | NUR ---
PATIENT ALERT AND ORIENTED X 4 NO SIGN OF DISTRESS OR SOB NO PAIN VERBALIZED, AMBULATED TO RESTROOM NO COMPLICATIONS, BP 160/110 GAVE SCHEDULED BP MEDS, PATIENT SITTING UP IN BED LOW POSITION CALL LIGHT IN APLCE SIDE RAILS UP
[2016-06-21 08:28] LABS: ALBUMIN 3.7 g/dL (3.4-4.8); CALCIUM 9.4 mg/dL (8.4-11.0); CREATININE 1.15 mg/dL (0.55-1.30); TOTAL BILIRUBIN 1.3 mg/dL (0.0-1.0)
[2016-06-21] MEDS: amLODIPine BESYLATE 10 MG TABLET PO SCH (08:38)
[2016-06-21] MEDS: HYDROCHLOROTHIAZIDE 25 MG TABLET (HCTZ) PO SCH (08:39)
[2016-06-21] MEDS: metFORMIN HCL 500 MG TABLET PO SCH ×2 (08:39→17:28)
[2016-06-21] MEDS: DOXYCYCLINE HYCLATE 100 MG CAPSULE PO SCH ×2 (08:39→20:36)
[2016-06-21] MEDS: LISINOPRIL 20 MG TABLET PO SCH (08:40)
[2016-06-21] MEDS: METOPROLOL SUCCINATE 50 MG TAB.SR.24H (TOPROL XL) PO SCH ×2 (08:40→20:36)
[2016-06-21] MEDS: LOSARTAN POTASSIUM 50 MG TABLET (COZAAR) PO SCH ×2 (08:41→20:37)
[2016-06-21] MEDS ORDERED: POTASSIUM CHLORIDE 20 MEQ TAB.PRT.SR PO ONE (09:45)
[2016-06-21 12:00] VITALS: BP 144/119; PULSE 101; RESP 16; TEMP 98.7; O2SAT 97
--- NOTE | 2016-06-21 12:00 | NUR ---
PATIENT ALERT AND ORIENTED X 4 NO SIGN OF DISTRESS OR SOB NO PAIN VERBALIZED BS 93 NO COVERAGE, DR RANDALL STATED PATIENT NOT CLEARED TO GO HOME TODAY, GAVE POTASSIUM CHLORIDE ORDERED FOR K+ 3.0
[2016-06-21 12:26] VITALS: BP 145/100; PULSE 100; RESP 18; TEMP 98.1; O2SAT 99
[2016-06-21] MEDS ORDERED: DILTIAZEM HCL 300 MG CAP.SR.24H PO SCH (13:30)
[2016-06-21] MEDS ORDERED: DILTIAZEM HCL 180 MG CAP.SR.24H PO ONE (13:45)
[2016-06-21] MEDS ORDERED: DILTIAZEM HCL 120 MG CAP.SR.24H PO ONE (13:45)
[2016-06-21 16:00] VITALS: BP 155/105; PULSE 73; RESP 16; TEMP 98.8; O2SAT 97
--- NOTE | 2016-06-21 16:24 | NUR ---
PATIENT ALERT AND ORIENTED X 4 NO SIGN OF DISTRESS BS 67 GAVE SMALL CUP ORANGE JUICE
--- NOTE | 2016-06-21 17:26 | NUR ---
PATIENT ALERT AND ORIENTED X 4 NO SIGN OF DISTRESS OR SOB NO PAIN VERBALIZED, BS 72 AFTER GAVE OJ, CUIRRENTLY PATIENT LYING IN BED HOB ELEVATED WATCHING TELEVISION BED IN LOW POSITION CALL LIGHT IN PLACE SIDE RAILS UP
--- NOTE | 2016-06-21 17:41 | NUR ---
PATIENT ALERT AND ORIENTED X 4 NO SIGN OF DISTRESS OR SOB NO PAIN VERBALIZED, CURRENTLY LYING IN BED HOB ELEVATED BED IN LOW POSITION CALL LIGHT IN PLACE SIDE RAILS UP
--- NOTE | 2016-06-21 19:55 | NUR ---
PM SHIFT ASSESSMENT RECEIVED PATIENT IN BED, AOX4, DENIES ANY PAIN OR DISCOMFORT AT THIS TIME. BP ELEVATED. PATIENT ASYMPTOMATIC, OTHER VITALS STABLE. IV LINE TO LEFT FOREARM INTACT AND PATENT, NO SIGNS OF INFILTRATION NOTED. POC DISCUSSED WITH PATIENT, VERBALIZED UNDERSTANDING, COMPLIANT. ORIENTED TO USE CALL LIGHT FOR NURSE ASSISTANCE. SAFETY MEASURES IN PLACE, WILL CONTINUE TO MONITOR.
[2016-06-21 20:00] VITALS: BP 169/114; PULSE 100; RESP 20; TEMP 97; O2SAT 96
[2016-06-21] MEDS: cefTRIAXone 1 GM in D5W 50 ML IV SCH (20:35)
--- NOTE | 2016-06-21 22:09 | NUR ---
RN ROUNDS PATIENT RESTING QUIETLY IN BED, DUE MEDICATIONS ADMINISTERED EARLIER, BLOOD SUGAR CHECK THIS PM, 93. PATIENT GIVEN ORANGE JUICE TO DRINK LATER. SAFETY MEASURES IN PLACE, CALL LIGHT WITHIN REACH, WILL CONTINUE TO MONITOR.
--- NOTE | 2016-06-21 23:11 | NUR ---
RN ROUNDS PATIENT AWAKE, DUE MEDICATIONS ADMINISTERED, DENIES ANY PAIN OR DISCOMFORT AT THIS TIME, REFUSED 2300 BREATHING TX. NEEDS ATTENDED TO. CALL LIGHT REMAINS WITHIN REACH, WILL CONTINUE TO MONITOR.
--- NOTE | 2016-06-22 00:04 | NUR ---
RN ROUNDS PATIENT SLEEPING, RESPIRATIONS EVEN AND UNLABORED, VITALS STABLE. SAFETY MEASURES IN PLACE, CALL LIGHT REMAINS WITHIN REACH, WILL CONTINUE TO MONITOR.
[2016-06-22 00:14] VITALS: BP 165/119; PULSE 95; RESP 20; TEMP 97.8; O2SAT 94
--- NOTE | 2016-06-22 01:30 | NUR ---
TRANSFER OF CARE: RECEIVED REPORT FROM MAL JASSO. SEEN PATIENT AFTER IN BED AWAKE .DENIES PAIN NOR SOB. COUGHING PRODUCTIVELY WITH SCANT WHITISH TIN PHLEGM.VERBALIZED ELEVATED BLOOD PRESSURE. NO HEADACHE .HAD CLONIDINE PO. CALL LIGHT WITHIN REACH. BED IN LOW POSITION. HAD JELLO FOR SNACK. WILL MONITOR BP CLOSELY.
[2016-06-22] MEDS: cloNIDine HCL 0.1 MG TABLET PO PRN ×2 (01:53→09:49)
--- NOTE | 2016-06-22 03:00 | NUR ---
PATIENT RESTING WITH EYES CLOSE THIS TIME.
--- NOTE | 2016-06-22 04:00 | NUR ---
VITAL SIGNS TAKEN BY PUMP TECHNICIAN. DENIES PAIN. PREVIOUS DBP IS ALWAYS ELEVATED.
[2016-06-22 04:11] VITALS: BP 155/104; PULSE 83; RESP 18; TEMP 98.1; O2SAT 96
--- NOTE | 2016-06-22 05:00 | NUR ---
SCD WAS ORDERED BUT REFUSES TO USE IT.
[2016-06-22] MEDS: PROMETHAZINE 6.25 MG/ CODEINE 10 MG/ 5 ML PO SCH ×2 (05:49→11:12)
[2016-06-22] MEDS: LevALBUTEROL HCL 1.25 MG/0.5 ML *CONC.* VIAL.NEB (XOPENEX CONC.) INH SCH (07:00)
--- NOTE | 2016-06-22 07:00 | NUR ---
CLOSING: HOURLY ROUNDS DONE. ALL NEEDS WERE ATTENDED. NO ACUTE DISTRESS . NO S/S OF HYPOGLYCEMIA.
[2016-06-22] MEDS: GLIMEPIRIDE 2 MG TABLET PO SCH ×2 (07:44→11:12)
--- NOTE | 2016-06-22 07:46 | NUR ---
AM Rounds: Pt sitting up in bed and eating breakfast at this time. No acute signs of distress noted. Iv intact with no redness or swelling noted to site. Pt refuse SCDs at this time. Call light in reach. Pt denies chest pain and SOB. No hemoptysis noted. Continue to monitor.
[2016-06-22 07:50] VITALS: BP 169/101; PULSE 96
[2016-06-22 07:54] LABS: BASOPHILS # (AUTO) 0.1 K/uL (0.0-0.2); BASOPHILS % (AUTO) 0.6 % (0.0-2.0); EOSINOPHILS # (AUTO) 0.2 K/uL (0.0-0.4); EOSINOPHILS % (AUTO) 1.5 % (0.0-4.0); HEMATOCRIT 48.4 % (36-54); HEMOGLOBIN 15.9 g/dL (14.0-18.0); LYMPHOCYTES # (AUTO) 0.9 K/uL (1.0-5.5); LYMPHOCYTES % (AUTO) 7.5 % (20.5-51.5); MEAN CORPUSCULAR HEMOGLOBIN 29 pg (27-31); MEAN CORPUSCULAR HGB CONC 33 % (32-36); MONOCYTES # (AUTO) 1.2 K/uL (0.0-1.0); MONOCYTES % (AUTO) 10.1 % (1.7-9.3); NEUTROPHILS # (AUTO) 9.7 K/uL (1.8-7.7); NEUTROPHILS % (AUTO) 80.3 % (40.0-70.0); PLATELET COUNT (AUTO) 174 K/uL (130-430); RED BLOOD CELL COUNT(AUTO) 5.55 MIL/uL (4.2-6.2); RED CELL DISTRIBUTION WIDTH 14.1 % (9.0-15.0); WHITE BLOOD COUNT (AUTO) 12.1 K/uL (4.8-10.8)
[2016-06-22 08:16] VITALS: BP 169/101; PULSE 94; RESP 17; TEMP 97.6; O2SAT 98
[2016-06-22 08:23] LABS: CALCIUM 9.6 mg/dL (8.4-11.0); CREATININE 1.23 mg/dL (0.55-1.30); POTASSIUM 3.1 mmol/L (3.5-5.1)
[2016-06-22] MEDS: METOPROLOL SUCCINATE 50 MG TAB.SR.24H (TOPROL XL) PO SCH (08:30)
[2016-06-22] MEDS: metFORMIN HCL 500 MG TABLET PO SCH (08:31)
[2016-06-22] MEDS: LOSARTAN POTASSIUM 50 MG TABLET (COZAAR) PO SCH (08:31)
[2016-06-22] MEDS: LISINOPRIL 20 MG TABLET PO SCH (08:31)
[2016-06-22] MEDS: DOXYCYCLINE HYCLATE 100 MG CAPSULE PO SCH (08:31)
[2016-06-22] MEDS: HYDROCHLOROTHIAZIDE 25 MG TABLET (HCTZ) PO SCH (08:32)
[2016-06-22 08:36] LABS: MEAN CORPUSCULAR VOLUME 87 fL (79.0-98.0)
[2016-06-22] MEDS ORDERED: DILTIAZEM HCL 180 MG CAP.SR.24H PO SCH (09:00)
[2016-06-22] MEDS ORDERED: DILTIAZEM HCL 120 MG CAP.SR.24H PO SCH (09:00)
--- NOTE | 2016-06-22 09:34 | NUR ---
CARDIOLOGY PAGE Paged Dr. Pearson ([phone]) in regards for clarification orders. Dr. Cho is currently on-call.
--- NOTE | 2016-06-22 09:51 | NUR ---
RN Rounds: AM meds given per MD order. Additional BP med given for elevated BP 170/97, HR 85. Pt sitting up in bed. Denies chest pain and headache. Pt is ambulatory in room and hallway. Call light in reach. Page Dr. Pearson regarding BP meds. Awaiting page back at this time.
--- NOTE | 2016-06-22 11:25 | NUR ---
Rounds: Pt sitting semi-fowlers in bed. No acute signs of distress noted. IV intact to LUE. Blood sugar checked and no coverage given. Denies chest pain and SOB. Cleared by Dr. Julian for d/c home. Dr. Julian aware of results of blood culture. Per Dr. Castle ok to d/c patient home when cleared by paradi operator. Call light in reach. No other needs noted at this time. Continue to monitor.
[2016-06-22] MEDS ORDERED: POTASSIUM CHLORIDE 20 MEQ TAB.PRT.SR PO ONE (11:30)
[2016-06-22 12:24] VITALS: BP 156/103; PULSE 78; RESP 17; TEMP 98.2; O2SAT 97
--- NOTE | 2016-06-22 13:18 | NUR ---
Rounds: Pt sitting semi-fowlers in bed. No acute signs of distress noted. IV intact to LUE with no redness or swelling noted to site. Call light in reach. Continue to monitor.
--- NOTE | 2016-06-22 14:09 | NUR ---
Dr. Pearson Here: Dr. Pearson here to see patient, ok to d/c patient home. Aware of current prescriptions. Page Dr. Castle for med rec. Awaiting page back at this time.
--- NOTE | 2016-06-22 14:10 | NUR ---
CALLED ATTENDING MD DR STEEL, RE: MED RECONCILLATION. SPOKE TO MEJIA
[2016-06-22] MEDS ORDERED: DILT120C89 PO (14:14)
[2016-06-22] MEDS ORDERED: TOPXL100 PO (14:14)
[2016-06-22] MEDS ORDERED: HYDR25TA4 PO (14:14)
[2016-06-22] MEDS ORDERED: LOSA50TA3 PO (14:15)
[2016-06-22] MEDS ORDERED: DOXY-4 PO (14:15)
[2016-06-22] MEDS ORDERED: LEVO500T20 PO (14:15)
[2016-06-22] MEDS ORDERED: LISI-600 PO (14:15)
[2016-06-22] MEDS ORDERED: SACC250C3 PO (14:16)
[2016-06-22 14:19] VITALS: BP 156/109; PULSE 82; RESP 17; TEMP 97.9; O2SAT 96
--- NOTE | 2016-06-22 15:34 | NUR ---
D/C Patient Patient given medication reconciliation form and D/C instructions. Exit Care provided. Patient verbalized understanding. MD discussed with patient the results and treatment provided. Ambulatory with steady gait for discharge to home. Patient in stable condition, ID band removed. IV catheter removed, intact and dressing applied, no active bleeding. Rx given. Patient educated on pain management. All belongings sent with patient.
== END 2016-06-22 15:34 | disposition home or self-care (01) | DRG 195 ==
LOC: SED 17:21 → STU 19:13
PROVIDERS: ADMIT Family Medicine; ATTEND Family Medicine
PROC: 0B958ZX Drainage of Right Middle Lobe Bronchus, Via Natural or Artificial Opening Endoscopic, Diagnostic (ICD-10-PCS; principal; 2016-06-19 14:00)
PROC: 0BB58ZX Excision of Right Middle Lobe Bronchus, Via Natural or Artificial Opening Endoscopic, Diagnostic (ICD-10-PCS; 2016-06-19 14:00)
DX: J18.1 Lobar pneumonia, unspecified organism (principal); J20.9 Acute bronchitis, unspecified; F12.90 Cannabis use, unspecified, uncomplicated; N18.9 Chronic kidney disease, unspecified; I48.2 Chronic atrial fibrillation; I12.9 Hypertensive chronic kidney disease with stage 1 through stage 4 chronic kidney disease, or unspecified chronic kidney disease; E11.22 Type 2 diabetes mellitus with diabetic chronic kidney disease; Z79.899 Other long term (current) drug therapy; E66.9 Obesity, unspecified; Z68.27 Body mass index [BMI] 27.0-27.9, adult
CPT/HCPCS: 31624; 31625; 36415; 71010; 71250-TC; 80048; 80053; 81000-TC; 82962; 83036; 83735-TC; 84484; 85025; 85610-TC; 85651-TC; 85730-TC; 86480; 87040-TC; 87070; 87101; 87116; 87385; 88108; 88305; 93005; 93306; 94640; 96361; 96365; 96366; 96375; 99285; J0456; J0696; J1815; J2001; J2175; J2250; J3480; J3490; J7030; J7040; J7050; J7060

== ENCOUNTER 2018-12-12 13:19 | Inpatient (IN) | payer BC ==
[~2018-12-12] VITALS: Ht 182.9 cm; Wt 98.9 kg
[2018-12-12] VITALS (8 sets, daily range): BP systolic 101–170
[~2018-12-12 13:19] MED LIST: DILT120C89 PO; DOXY100C PO; GLIM4TAB PO; HYDR25TA4 PO; LEVO500T20 PO; LISI-600 PO; LOSA50TA3 PO; METF1000 PO; SACC250C3 PO; TOPXL100 PO; ZIA2.5/6.25 PO
[2018-12-12] MEDS ORDERED: NACL 0.9% 1,000 ML IV ONE ×2 (13:36→15:45)
[2018-12-12] MEDS ORDERED: ONDANSETRON HCL 4 MG/2 ML VIAL IVP ONE (13:45)
[2018-12-12] MEDS ORDERED: ADENOSINE 6MG/2ML VIAL IVP ONE ×3 (14:00→14:15)
[2018-12-12 14:09] LABS: BASOPHILS % (AUTO) 0.2 % (0.0-2.0); EOSINOPHILS % (AUTO) 0.1 % (0.0-4.0); HEMATOCRIT 47.3 % (36-54); HEMOGLOBIN 15.8 g/dL (14.0-18.0); LYMPHOCYTES # (AUTO) 0.1 K/uL (1.0-5.5); MEAN CORPUSCULAR HEMOGLOBIN 31 pg (27-31); MEAN CORPUSCULAR HGB CONC 33 % (32-36); MEAN CORPUSCULAR VOLUME 93 fL (79.0-98.0); MONOCYTES # (AUTO) 0.2 K/uL (0.0-1.0); MONOCYTES % (AUTO) 1.4 % (1.7-9.3); NEUTROPHILS # (AUTO) 11.7 K/uL (1.8-7.7); NEUTROPHILS % (AUTO) 97.3 % (40.0-70.0); RED BLOOD CELL COUNT(AUTO) 5.11 MIL/uL (4.2-6.2); RED CELL DISTRIBUTION WIDTH 14.3 % (9.0-15.0); WHITE BLOOD COUNT (AUTO) 12.1 K/uL (4.8-10.8)
[2018-12-12] MEDS ORDERED: ADENOSINE 6MG/2ML VIAL ONE (14:11)
[2018-12-12 14:24] LABS: ALANINE AMINOTRANSFERASE 174 U/L (12-78); ALBUMIN 2.2 g/dL (3.4-4.8); ANION GAP 14 (5-15); ASPARTATE AMINOTRANSFERASE 184 U/L (10-37); CALCIUM 9.2 mg/dL (8.4-11.0); CHLORIDE 87 mmol/L (98-107); LIPASE 91 U/L (73-393); POTASSIUM 3.1 mmol/L (3.5-5.1); SODIUM SERUM 125 mmol/L (136-145); TOTAL BILIRUBIN 1.5 mg/dL (0.0-1.0); UREA NITROGEN, BLOOD 84 mg/dL (8-21)
[2018-12-12 14:26] LABS: ALCOHOL, BLOOD < 3 mg/dL (<10); GLUCOSE 573 mg/dL (70-99)
[2018-12-12 14:30] LABS: PLATELET COUNT (AUTO) 200 K/uL (130-430)
[2018-12-12] MEDS ORDERED: DILTIAZEM HCL 25 MG/5 ML VIAL IVP ONE ×2 (14:30→15:00)
[2018-12-12] MEDS ORDERED: INSULIN REGULAR, HUMAN 10 UNITS/0.1 ML INJ IVP ONE ×2 (14:30)
[2018-12-12] MEDS ORDERED: DILTIAZEM HCL 125 MG in D5W 100 ML IV ONE ×2 (14:30→15:45)
[2018-12-12] MEDS ORDERED: DILTIAZEM HCL 25 MG/5 ML VIAL ONE (14:31)
[2018-12-12 14:34] LABS: INR 1.2 (0.80-1.20); PROTHROMBIN TIME 12.5 SECS (9.5-12.5)
[2018-12-12 14:39] LABS: CREATININE 3.42 mg/dL (0.55-1.30); GFR AFRICAN AMERICAN 24 mL/min (>90)
[2018-12-12] MEDS ORDERED: DILTIAZEM HCL 125 MG/25 ML VIAL IV ONE ×2 (14:39→20:42)
[2018-12-12] MEDS ORDERED: POTASSIUM CHLORIDE 20 MEQ/PKT PACKET PO ONE (14:45)
[2018-12-12 14:50] LABS: CKMB RELATIVE INDEX 0.6 (0.0-2.9); CREATINE KINASE MB 4.5 ng/mL (0-3.6)
[2018-12-12] MEDS ORDERED: PIPERACILLIN/TAZO 4.5 GM in NS 100 ML IV ONE (15:15)
[2018-12-12 15:18] LABS: FIBRINOGEN 890 mg/dL (200-400)
[2018-12-12] MEDS ORDERED: PIPERACILLIN/TAZOBACTAM 4.5 GM/VIAL (ZOSYN) IV ONE (15:40)
[2018-12-12 15:59] LABS: BILIRUBIN,URINE NEGATIVE (NEGATIVE); BLOOD, URINE 3+ (NEGATIVE); CLARITY/URINE SL HAZY (CLEAR); COLOR,URINE YELLOW (YELLOW); GLUCOSE,URINE 3+ (NEGATIVE); KETONES,URINE NEGATIVE (NEGATIVE); LEUKOCYTE ESTERASE ,URINE NEGATIVE (NEGATIVE); NITRITE, URINE NEGATIVE (NEGATIVE); PH,URINE 5.5 (5.0-8.0); PROTEIN URINE 2+ (NEGATIVE)
[2018-12-12 16:01] LABS: CANNABINOID, URINE POSITIVE (NEG <=50)
[2018-12-12 16:02] LABS: BARBITURATE, URINE NEGATIVE (NEG <=200); BENZODIAZEPINE, URINE NEGATIVE (NEG <=150); COCAINE, URINE NEGATIVE (NEG <=150); METHAMPHETAMINES SCREEN,URINE NEGATIVE (NEG <=500); OPIATE, URINE NEGATIVE (NEG <=100); PHENCYCLIDINE SCREEN,URINE NEGATIVE (NEG <=25); UR TRICYCLIC ANTIDEPRESSANTS NEGATIVE (NEG <=300); URINE AMPHETAMINE NEGATIVE (NEG <=500); URINE METHADONE NEGATIVE (NEG <=200); URINE OXYCODONE SCREEN NEGATIVE (NEG <=100); URINE PROPOXYPHENE SCREEN NEGATIVE (NEG <=300)
[2018-12-12 16:20] LABS: BACTERIA,URINE MODERATE /HPF (None Seen); COARSE GRANULAR CASTS,URINE 0-10 /LPF (None Seen); HYALINE CASTS, URINE 0-10 /LPF (None Seen); WBC,URINE 0-3 /HPF (0-3)
[2018-12-12 16:21] LABS: MUCUS,URINE None Seen /LPF (None Seen)
[2018-12-12] MEDS ORDERED: AMIODARONE HCL 200 MG TABLET PO ONE ×2 (16:50→19:15)
[2018-12-12] MEDS ORDERED: POTASSIUM CHLORIDE 20 MEQ TAB.PRT.SR PO ONE (17:00)
[2018-12-12] MEDS ORDERED: AMIODARONE HCL 200 MG TABLET ONE (17:04)
[2018-12-12] MEDS ORDERED: D5W 1,000 ML IV PRN (17:15)
[2018-12-12] MEDS ORDERED: DEXTROSE 50%-WATER 50 ML DISP.SYRIN IVP PRN (17:15)
[2018-12-12] MEDS ORDERED: GLUCOSE 15 GM GEL (in 37.5 GM TUBE) PO PRN (17:15)
[2018-12-12] MEDS ORDERED: cefTRIAXone 1 GM VIAL ONE (17:30)
[2018-12-12] MEDS: INSULIN REGULAR, HUMAN 100 UNITS/ML, 10 ML VIAL (humuLIN R) SUBCUT PRN ×2 (17:34→22:54)
[2018-12-12] MEDS ORDERED: cefTRIAXone 1 GM in D5W 50 ML IV SCH (18:00)
[2018-12-12] MEDS ORDERED: SODIUM BICARBONATE 8.4% JECT 50 MEQ/50 ML SYRINGE IVP ONE (18:15)
[2018-12-12 18:32] LABS: CKMB RELATIVE INDEX 0.7 (0.0-2.9)
[2018-12-12] MEDS ORDERED: MIDAZOLAM HCL 5 MG/5 ML VIAL ONE (19:29)
[2018-12-12] MEDS: LORazepam 2 MG/ML VIAL IVP PRN (20:06)
[2018-12-12] MEDS: MORPHINE 2 MG/ML INJ. SYRINGE IVP PRN (20:08)
[2018-12-12] MEDS: DILTIAZEM HCL 125 MG in D5W 100 ML IV SCH (20:37)
[2018-12-12] MEDS: PROPOFOL DRIP 100 ML IV PRN (20:54)
[2018-12-12] MEDS: AMIODARONE HCL 200 MG TABLET PO SCH (21:00)
[2018-12-12] MEDS: NACL 0.9% 1,000 ML IV SCH (21:14)
[2018-12-12] MEDS: LevALBUTEROL HCL 1.25 MG/0.5 ML *CONC.* VIAL.NEB (XOPENEX CONC.) INH SCH (21:20)
[2018-12-12] MEDS ORDERED: AZITHROMYCIN 500 MG/VIAL (ZITHROMAX) IV ONE (22:13)
[2018-12-12] MEDS ORDERED: PIPERACILLIN/TAZOBACTAM 2.25 GM VIAL IV ONE (22:14)
[2018-12-12] MEDS: FAMOTIDINE PF 20 MG/2 ML VIAL IVP SCH (22:38)
[2018-12-12] MEDS: AZITHROMYCIN 500 MG in NS 250 ML IV SCH (22:39)
[2018-12-13] VITALS (26 sets, daily range): BP systolic 93–146
[2018-12-13] MEDS: ACETAMINOPHEN 650 MG/20.3 ML UDC GT PRN (00:36)
[2018-12-13] MEDS: LevALBUTEROL HCL 1.25 MG/0.5 ML *CONC.* VIAL.NEB (XOPENEX CONC.) INH SCH ×4 (01:16→20:00)
[2018-12-13] MEDS: DILTIAZEM HCL 125 MG in D5W 100 ML IV SCH ×3 (02:34→23:59)
[2018-12-13 03:05] LABS: BILIRUBIN,URINE NEGATIVE (NEGATIVE); BLOOD, URINE 3+ (NEGATIVE); CLARITY/URINE HAZY (CLEAR); COLOR,URINE YELLOW (YELLOW); GLUCOSE,URINE NEGATIVE (NEGATIVE); KETONES,URINE NEGATIVE (NEGATIVE); LEUKOCYTE ESTERASE ,URINE NEGATIVE (NEGATIVE); NITRITE, URINE NEGATIVE (NEGATIVE); PROTEIN URINE 2+ (NEGATIVE)
[2018-12-13] MEDS: NACL 0.9% 1,000 ML IV SCH ×2 (03:44→11:24)
[2018-12-13 03:50] LABS: BACTERIA,URINE FEW /HPF (None Seen); FINE GRANULAR CASTS,URINE 0-10 /LPF (None Seen); RBC,URINE 20-50 /HPF (0-3)
[2018-12-13] MEDS: LORazepam 2 MG/ML VIAL IVP PRN (05:36)
[2018-12-13 05:55] LABS: HEMATOCRIT 42.4 % (36-54); HEMOGLOBIN 14.2 g/dL (14.0-18.0); LYMPHOCYTES # (AUTO) 0.2 K/uL (1.0-5.5); LYMPHOCYTES % (AUTO) 1.3 % (20.5-51.5); MEAN CORPUSCULAR HEMOGLOBIN 31 pg (27-31); MEAN CORPUSCULAR HGB CONC 33 % (32-36); MEAN CORPUSCULAR VOLUME 93 fL (79.0-98.0); MONOCYTES # (AUTO) 0.3 K/uL (0.0-1.0); MONOCYTES % (AUTO) 2.2 % (1.7-9.3); NEUTROPHILS # (AUTO) 12.4 K/uL (1.8-7.7); NEUTROPHILS % (AUTO) 96.5 % (40.0-70.0); PLATELET COUNT (AUTO) 94 K/uL (130-430); RED BLOOD CELL COUNT(AUTO) 4.57 MIL/uL (4.2-6.2); RED CELL DISTRIBUTION WIDTH 14.2 % (9.0-15.0); WHITE BLOOD COUNT (AUTO) 12.9 K/uL (4.8-10.8)
[2018-12-13] MEDS: PIPERACILLIN/TAZO 2.25G/DEX-IS 50 ML IV SCH ×3 (06:07→22:29)
[2018-12-13 06:15] LABS: ALANINE AMINOTRANSFERASE 132 U/L (12-78); ALBUMIN 1.6 g/dL (3.4-4.8); AMYLASE 28 U/L (0-100); ANION GAP 11 (5-15); ASPARTATE AMINOTRANSFERASE 96 U/L (10-37); CALCIUM 8.3 mg/dL (8.4-11.0); CHLORIDE 99 mmol/L (98-107); CREATININE 3.95 mg/dL (0.55-1.30); GLUCOSE 205 mg/dL (70-99); LIPASE 70 U/L (73-393); POTASSIUM 3.4 mmol/L (3.5-5.1); SODIUM SERUM 135 mmol/L (136-145); UREA NITROGEN, BLOOD 85 mg/dL (8-21)
[2018-12-13] MEDS: INSULIN REGULAR, HUMAN 100 UNITS/ML, 10 ML VIAL (humuLIN R) SUBCUT PRN ×4 (06:18→20:23)
[2018-12-13 06:53] LABS: GFR AFRICAN AMERICAN 20 mL/min (>90)
[2018-12-13 08:17] LABS: TRIGLYCERIDES 164 mg/dL (30-150)
[2018-12-13 08:18] LABS: HDL CHOLESTEROL 6 mg/dL (>45); LDL CHOLESTEROL 19 mg/dL (<100)
[2018-12-13 08:34] LABS: CHOLESTEROL < 50 mg/dL (<200)
[2018-12-13] MEDS ORDERED: NACL 0.9% 1,000 ML IV ONE (09:00)
[2018-12-13] MEDS ORDERED: POTASSIUM CHLORIDE 20 MEQ in NS 250 ML IV ONE (10:00)
[2018-12-13] MEDS: AMIODARONE HCL 200 MG TABLET PO SCH ×2 (10:25→20:19)
[2018-12-13] MEDS: PROPOFOL DRIP 100 ML IV PRN (18:22)
[2018-12-13] MEDS: FAMOTIDINE PF 20 MG/2 ML VIAL IVP SCH (20:18)
[2018-12-13] MEDS: AZITHROMYCIN 500 MG in NS 250 ML IV SCH (20:18)
[2018-12-13] MEDS ORDERED: DILTIAZEM HCL 125 MG/25 ML VIAL IV ONE (23:34)
[2018-12-14] VITALS (33 sets, daily range): BP systolic 101–138
[2018-12-14] MEDS: NACL 0.9% 1,000 ML IV SCH ×3 (00:15→21:15)
[2018-12-14] MEDS: LevALBUTEROL HCL 1.25 MG/0.5 ML *CONC.* VIAL.NEB (XOPENEX CONC.) INH SCH ×4 (00:59→19:37)
[2018-12-14] MEDS: PROPOFOL DRIP 100 ML IV PRN ×3 (04:25→21:40)
[2018-12-14 05:41] LABS: BASOPHILS % (AUTO) 0.2 % (0.0-2.0); EOSINOPHILS % (AUTO) 0.3 % (0.0-4.0); HEMATOCRIT 39.5 % (36-54); HEMOGLOBIN 13.2 g/dL (14.0-18.0); LYMPHOCYTES # (AUTO) 0.3 K/uL (1.0-5.5); LYMPHOCYTES % (AUTO) 1.9 % (20.5-51.5); MEAN CORPUSCULAR HEMOGLOBIN 31 pg (27-31); MEAN CORPUSCULAR HGB CONC 34 % (32-36); MEAN CORPUSCULAR VOLUME 92 fL (79.0-98.0); MONOCYTES # (AUTO) 0.2 K/uL (0.0-1.0); MONOCYTES % (AUTO) 1.8 % (1.7-9.3); NEUTROPHILS # (AUTO) 12.8 K/uL (1.8-7.7); NEUTROPHILS % (AUTO) 95.8 % (40.0-70.0); PLATELET COUNT (AUTO) 129 K/uL (130-430); RED BLOOD CELL COUNT(AUTO) 4.28 MIL/uL (4.2-6.2); RED CELL DISTRIBUTION WIDTH 14.8 % (9.0-15.0); WHITE BLOOD COUNT (AUTO) 13.3 K/uL (4.8-10.8)
[2018-12-14 05:56] LABS: INR 1.2 (0.80-1.20); PROTHROMBIN TIME 12.1 SECS (9.5-12.5)
[2018-12-14 06:13] LABS: ALBUMIN 1.4 g/dL (3.4-4.8); CALCIUM 7.8 mg/dL (8.4-11.0); CREATININE 5.37 mg/dL (0.55-1.30); POTASSIUM 3.7 mmol/L (3.5-5.1); TOTAL BILIRUBIN 0.7 mg/dL (0.0-1.0)
[2018-12-14] MEDS: PIPERACILLIN/TAZO 2.25G/DEX-IS 50 ML IV SCH ×3 (06:20→22:07)
[2018-12-14] MEDS: DILTIAZEM HCL 125 MG in D5W 100 ML IV SCH ×2 (06:37→14:39)
[2018-12-14] MEDS ORDERED: DILTIAZEM HCL 125 MG/25 ML VIAL IV ONE (06:42)
[2018-12-14] MEDS: AMIODARONE HCL 200 MG TABLET PO SCH ×2 (09:12→21:15)
[2018-12-14] MEDS: INSULIN REGULAR, HUMAN 100 UNITS/ML, 10 ML VIAL (humuLIN R) SUBCUT PRN ×3 (12:42→21:19)
[2018-12-14] MEDS: FAMOTIDINE PF 20 MG/2 ML VIAL IVP SCH (18:44)
[2018-12-14] MEDS: AZITHROMYCIN 500 MG in NS 250 ML IV SCH (20:26)
[2018-12-15] VITALS (34 sets, daily range): BP systolic 103–150
[2018-12-15] MEDS: LevALBUTEROL HCL 1.25 MG/0.5 ML *CONC.* VIAL.NEB (XOPENEX CONC.) INH SCH ×4 (01:21→19:31)
[2018-12-15] MEDS: PROPOFOL DRIP 100 ML IV PRN ×4 (03:25→23:44)
[2018-12-15 05:33] LABS: BASOPHILS % (AUTO) 0.3 % (0.0-2.0); EOSINOPHILS # (AUTO) 0.1 K/uL (0.0-0.4); EOSINOPHILS % (AUTO) 0.6 % (0.0-4.0); HEMATOCRIT 38.9 % (36-54); LYMPHOCYTES # (AUTO) 0.2 K/uL (1.0-5.5); LYMPHOCYTES % (AUTO) 1.6 % (20.5-51.5); MEAN CORPUSCULAR HEMOGLOBIN 31 pg (27-31); MEAN CORPUSCULAR HGB CONC 33 % (32-36); MEAN CORPUSCULAR VOLUME 92 fL (79.0-98.0); MONOCYTES # (AUTO) 0.3 K/uL (0.0-1.0); MONOCYTES % (AUTO) 2.1 % (1.7-9.3); NEUTROPHILS # (AUTO) 15.2 K/uL (1.8-7.7); NEUTROPHILS % (AUTO) 95.4 % (40.0-70.0); PLATELET COUNT (AUTO) 159 K/uL (130-430); RED BLOOD CELL COUNT(AUTO) 4.22 MIL/uL (4.2-6.2); WHITE BLOOD COUNT (AUTO) 15.9 K/uL (4.8-10.8)
[2018-12-15 06:00] LABS: ALBUMIN 1.4 g/dL (3.4-4.8); CALCIUM 8.4 mg/dL (8.4-11.0); CREATININE 6.5 mg/dL (0.55-1.30); POTASSIUM 3.7 mmol/L (3.5-5.1); TOTAL BILIRUBIN 0.7 mg/dL (0.0-1.0)
[2018-12-15] MEDS: INSULIN REGULAR, HUMAN 100 UNITS/ML, 10 ML VIAL (humuLIN R) SUBCUT PRN ×4 (06:29→21:47)
[2018-12-15] MEDS: PIPERACILLIN/TAZO 2.25G/DEX-IS 50 ML IV SCH ×3 (06:36→21:43)
[2018-12-15] MEDS: NACL 0.9% 1,000 ML IV SCH (06:36)
[2018-12-15] MEDS: METOPROLOL TARTRATE 50 MG TABLET PO SCH ×2 (08:31→21:44)
[2018-12-15] MEDS: AMIODARONE HCL 200 MG TABLET PO SCH ×2 (08:31→21:44)
[2018-12-15] MEDS: 0.45% NACL 1,000 ML IV SCH (10:55)
[2018-12-15] MEDS: LORazepam 2 MG/ML VIAL IVP PRN (11:16)
[2018-12-15] MEDS: MORPHINE 2 MG/ML INJ. SYRINGE IVP PRN ×2 (14:24→16:27)
[2018-12-15] MEDS: FAMOTIDINE PF 20 MG/2 ML VIAL IVP SCH (18:43)
[2018-12-15] MEDS: AZITHROMYCIN 500 MG in NS 250 ML IV SCH (19:57)
[2018-12-15] MEDS ORDERED: HEPARIN SODIUM,PORCINE 5000 UNITS/ML VIAL ONE (20:55)
[2018-12-16] VITALS (33 sets, daily range): BP systolic 119–186
[2018-12-16] MEDS: LevALBUTEROL HCL 1.25 MG/0.5 ML *CONC.* VIAL.NEB (XOPENEX CONC.) INH SCH ×4 (01:40→19:33)
[2018-12-16] MEDS: 0.45% NACL 1,000 ML IV SCH ×2 (02:06→11:45)
[2018-12-16 05:22] LABS: BASOPHILS # (AUTO) 0.1 K/uL (0.0-0.2); BASOPHILS % (AUTO) 0.7 % (0.0-2.0); EOSINOPHILS # (AUTO) 0.2 K/uL (0.0-0.4); EOSINOPHILS % (AUTO) 1.4 % (0.0-4.0); HEMATOCRIT 37.2 % (36-54); HEMOGLOBIN 12.7 g/dL (14.0-18.0); LYMPHOCYTES # (AUTO) 0.3 K/uL (1.0-5.5); LYMPHOCYTES % (AUTO) 2.1 % (20.5-51.5); MEAN CORPUSCULAR HEMOGLOBIN 31 pg (27-31); MEAN CORPUSCULAR HGB CONC 34 % (32-36); MEAN CORPUSCULAR VOLUME 91 fL (79.0-98.0); MONOCYTES # (AUTO) 0.2 K/uL (0.0-1.0); MONOCYTES % (AUTO) 1.6 % (1.7-9.3); NEUTROPHILS # (AUTO) 11.9 K/uL (1.8-7.7); NEUTROPHILS % (AUTO) 94.2 % (40.0-70.0); PLATELET COUNT (AUTO) 159 K/uL (130-430); RED CELL DISTRIBUTION WIDTH 14.6 % (9.0-15.0); WHITE BLOOD COUNT (AUTO) 12.6 K/uL (4.8-10.8)
[2018-12-16 05:41] LABS: ALBUMIN 1.3 g/dL (3.4-4.8); CREATININE 3.81 mg/dL (0.55-1.30); POTASSIUM 3.4 mmol/L (3.5-5.1)
[2018-12-16] MEDS: INSULIN REGULAR, HUMAN 100 UNITS/ML, 10 ML VIAL (humuLIN R) SUBCUT PRN ×4 (06:18→20:57)
[2018-12-16] MEDS: PIPERACILLIN/TAZO 2.25G/DEX-IS 50 ML IV SCH ×3 (06:18→21:08)
[2018-12-16] MEDS: PROPOFOL DRIP 100 ML IV PRN ×4 (06:52→23:28)
[2018-12-16] MEDS ORDERED: METOPROLOL TARTRATE 50 MG TABLET PO ONE (08:00)
[2018-12-16 08:18] LABS: HEPATITIS A AB, IgM Negative (Negative); HEPATITIS B CORE AB, IgM Negative (Negative); HEPATITIS B SURFACE AG Negative (Negative)
[2018-12-16] MEDS: AMIODARONE HCL 200 MG TABLET PO SCH ×2 (08:28→20:59)
[2018-12-16] MEDS ORDERED: HEPARIN SODIUM,PORCINE 5000 UNITS/ML VIAL IV ONE (12:00)
[2018-12-16] MEDS: LORazepam 2 MG/ML VIAL IVP PRN ×2 (13:42→18:02)
[2018-12-16] MEDS: METOPROLOL TARTRATE 50 MG TABLET PO SCH ×2 (18:00→23:25)
[2018-12-16] MEDS: FAMOTIDINE PF 20 MG/2 ML VIAL IVP SCH (18:50)
[2018-12-16] MEDS: AZITHROMYCIN 500 MG in NS 250 ML IV SCH (19:42)
[2018-12-16] MEDS: MORPHINE 2 MG/ML INJ. SYRINGE IVP PRN ×2 (21:00→22:13)
[2018-12-17] VITALS (35 sets, daily range): BP systolic 119–163
[2018-12-17] MEDS: LevALBUTEROL HCL 1.25 MG/0.5 ML *CONC.* VIAL.NEB (XOPENEX CONC.) INH SCH ×4 (01:11→19:34)
[2018-12-17] MEDS: 0.45% NACL 1,000 ML IV SCH ×2 (01:27→14:11)
[2018-12-17] MEDS: MORPHINE 2 MG/ML INJ. SYRINGE IVP PRN ×4 (02:47→22:49)
[2018-12-17 05:11] LABS: BASOPHILS % (AUTO) 0.1 % (0.0-2.0); EOSINOPHILS # (AUTO) 0.2 K/uL (0.0-0.4); HEMATOCRIT 36.8 % (36-54); HEMOGLOBIN 12.5 g/dL (14.0-18.0); LYMPHOCYTES # (AUTO) 0.4 K/uL (1.0-5.5); LYMPHOCYTES % (AUTO) 3.6 % (20.5-51.5); MEAN CORPUSCULAR HEMOGLOBIN 31 pg (27-31); MEAN CORPUSCULAR HGB CONC 34 % (32-36); MEAN CORPUSCULAR VOLUME 91 fL (79.0-98.0); MONOCYTES # (AUTO) 0.4 K/uL (0.0-1.0); MONOCYTES % (AUTO) 4.1 % (1.7-9.3); NEUTROPHILS # (AUTO) 9.4 K/uL (1.8-7.7); NEUTROPHILS % (AUTO) 90.2 % (40.0-70.0); PLATELET COUNT (AUTO) 186 K/uL (130-430); RED BLOOD CELL COUNT(AUTO) 4.06 MIL/uL (4.2-6.2); RED CELL DISTRIBUTION WIDTH 14.3 % (9.0-15.0); WHITE BLOOD COUNT (AUTO) 10.5 K/uL (4.8-10.8)
[2018-12-17] MEDS: PROPOFOL DRIP 100 ML IV PRN ×4 (05:33→22:44)
[2018-12-17] MEDS: METOPROLOL TARTRATE 50 MG TABLET PO SCH ×3 (05:35→18:05)
[2018-12-17] MEDS: PIPERACILLIN/TAZO 2.25G/DEX-IS 50 ML IV SCH ×3 (05:35→21:31)
[2018-12-17 05:42] LABS: ALBUMIN 1.2 g/dL (3.4-4.8); CALCIUM 8.2 mg/dL (8.4-11.0); CREATININE 4.59 mg/dL (0.55-1.30); POTASSIUM 3.4 mmol/L (3.5-5.1)
[2018-12-17] MEDS: INSULIN REGULAR, HUMAN 100 UNITS/ML, 10 ML VIAL (humuLIN R) SUBCUT PRN ×4 (06:11→20:21)
[2018-12-17] MEDS: AMIODARONE HCL 200 MG TABLET PO SCH ×2 (08:37→20:16)
[2018-12-17] MEDS: LORazepam 2 MG/ML VIAL IVP PRN (09:47)
[2018-12-17] MEDS ORDERED: HEPARIN SODIUM,PORCINE 5000 UNITS/ML VIAL ONE (13:30)
[2018-12-17] MEDS: FAMOTIDINE PF 20 MG/2 ML VIAL IVP SCH (20:16)
[2018-12-18] VITALS (38 sets, daily range): BP systolic 107–186
[2018-12-18] MEDS: METOPROLOL TARTRATE 50 MG TABLET PO SCH ×5 (00:10→23:09)
[2018-12-18] MEDS: LevALBUTEROL HCL 1.25 MG/0.5 ML *CONC.* VIAL.NEB (XOPENEX CONC.) INH SCH ×4 (01:23→19:11)
[2018-12-18] MEDS: MORPHINE 2 MG/ML INJ. SYRINGE IVP PRN ×6 (03:07→23:02)
[2018-12-18] MEDS: PROPOFOL DRIP 100 ML IV PRN ×4 (03:19→20:15)
[2018-12-18] MEDS: 0.45% NACL 1,000 ML IV SCH ×2 (04:02→17:39)
[2018-12-18] MEDS: LORazepam 2 MG/ML VIAL IVP PRN ×2 (04:21→17:40)
[2018-12-18] MEDS: PIPERACILLIN/TAZO 2.25G/DEX-IS 50 ML IV SCH ×3 (05:17→21:26)
[2018-12-18] MEDS: INSULIN REGULAR, HUMAN 100 UNITS/ML, 10 ML VIAL (humuLIN R) SUBCUT PRN ×4 (06:12→20:13)
[2018-12-18 06:36] LABS: BASOPHILS # (AUTO) 0.1 K/uL (0.0-0.2); BASOPHILS % (AUTO) 0.5 % (0.0-2.0); EOSINOPHILS # (AUTO) 0.2 K/uL (0.0-0.4); EOSINOPHILS % (AUTO) 2.1 % (0.0-4.0); HEMATOCRIT 37.4 % (36-54); HEMOGLOBIN 12.4 g/dL (14.0-18.0); LYMPHOCYTES # (AUTO) 0.4 K/uL (1.0-5.5); LYMPHOCYTES % (AUTO) 3.8 % (20.5-51.5); MEAN CORPUSCULAR HEMOGLOBIN 31 pg (27-31); MEAN CORPUSCULAR HGB CONC 33 % (32-36); MEAN CORPUSCULAR VOLUME 92 fL (79.0-98.0); MONOCYTES # (AUTO) 0.5 K/uL (0.0-1.0); MONOCYTES % (AUTO) 4.6 % (1.7-9.3); NEUTROPHILS # (AUTO) 10.6 K/uL (1.8-7.7); PLATELET COUNT (AUTO) 204 K/uL (130-430); RED BLOOD CELL COUNT(AUTO) 4.08 MIL/uL (4.2-6.2); RED CELL DISTRIBUTION WIDTH 14.6 % (9.0-15.0); WHITE BLOOD COUNT (AUTO) 11.9 K/uL (4.8-10.8)
[2018-12-18 07:08] LABS: ALBUMIN 1.2 g/dL (3.4-4.8); CALCIUM 8.3 mg/dL (8.4-11.0); CREATININE 3.27 mg/dL (0.55-1.30); POTASSIUM 3.4 mmol/L (3.5-5.1); THYROID STIMULATING HORMONE 0.51 uIu/mL (0.34-4.82); TOTAL BILIRUBIN 0.9 mg/dL (0.0-1.0)
[2018-12-18] MEDS: AMIODARONE HCL 200 MG TABLET PO SCH ×2 (08:28→20:17)
[2018-12-18] MEDS: FAMOTIDINE PF 20 MG/2 ML VIAL IVP SCH (18:49)
[2018-12-19] VITALS (33 sets, daily range): BP systolic 137–172
[2018-12-19] MEDS: PROPOFOL DRIP 100 ML IV PRN ×4 (00:50→20:30)
[2018-12-19] MEDS: LevALBUTEROL HCL 1.25 MG/0.5 ML *CONC.* VIAL.NEB (XOPENEX CONC.) INH SCH ×4 (01:50→19:49)
[2018-12-19] MEDS: ACETAMINOPHEN 650 MG/20.3 ML UDC GT PRN ×2 (03:59→11:23)
[2018-12-19] MEDS: MORPHINE 2 MG/ML INJ. SYRINGE IVP PRN ×5 (04:44→15:31)
[2018-12-19] MEDS: PIPERACILLIN/TAZO 2.25G/DEX-IS 50 ML IV SCH ×2 (05:53→13:00)
[2018-12-19] MEDS: METOPROLOL TARTRATE 50 MG TABLET PO SCH ×4 (05:53→23:47)
[2018-12-19] MEDS: INSULIN REGULAR, HUMAN 100 UNITS/ML, 10 ML VIAL (humuLIN R) SUBCUT PRN ×4 (06:06→20:29)
[2018-12-19] MEDS: 0.45% NACL 1,000 ML IV SCH ×2 (06:15→20:25)
[2018-12-19] MEDS: AMIODARONE HCL 200 MG TABLET PO SCH ×2 (08:11→20:26)
[2018-12-19 09:10] LABS: BASOPHILS # (AUTO) 0.2 K/uL (0.0-0.2); BASOPHILS % (AUTO) 1.5 % (0.0-2.0); EOSINOPHILS # (AUTO) 0.2 K/uL (0.0-0.4); EOSINOPHILS % (AUTO) 1.7 % (0.0-4.0); HEMATOCRIT 37.7 % (36-54); HEMOGLOBIN 12.8 g/dL (14.0-18.0); LYMPHOCYTES # (AUTO) 0.4 K/uL (1.0-5.5); MEAN CORPUSCULAR HEMOGLOBIN 31 pg (27-31); MEAN CORPUSCULAR HGB CONC 34 % (32-36); MEAN CORPUSCULAR VOLUME 92 fL (79.0-98.0); MONOCYTES # (AUTO) 0.5 K/uL (0.0-1.0); NEUTROPHILS # (AUTO) 10.7 K/uL (1.8-7.7); NEUTROPHILS % (AUTO) 89.8 % (40.0-70.0); PLATELET COUNT (AUTO) 227 K/uL (130-430); RED BLOOD CELL COUNT(AUTO) 4.12 MIL/uL (4.2-6.2); RED CELL DISTRIBUTION WIDTH 14.4 % (9.0-15.0); WHITE BLOOD COUNT (AUTO) 11.9 K/uL (4.8-10.8)
[2018-12-19 09:22] LABS: ALBUMIN 1.3 g/dL (3.4-4.8); CREATININE 3.03 mg/dL (0.55-1.30); POTASSIUM 3.8 mmol/L (3.5-5.1); TOTAL BILIRUBIN 1.1 mg/dL (0.0-1.0)
[2018-12-19] MEDS: LORazepam 2 MG/ML VIAL IVP PRN ×3 (10:39→22:34)
[2018-12-19] MEDS ORDERED: ENOXAPARIN SODIUM 40 MG/0.4 ML SYRINGE SUBCUT ONE (11:15)
[2018-12-19] MEDS: FAMOTIDINE PF 20 MG/2 ML VIAL IVP SCH (18:49)
[2018-12-20] VITALS (30 sets, daily range): BP systolic 121–184
[2018-12-20] MEDS: LevALBUTEROL HCL 1.25 MG/0.5 ML *CONC.* VIAL.NEB (XOPENEX CONC.) INH SCH ×4 (01:12→19:29)
[2018-12-20] MEDS: MORPHINE 2 MG/ML INJ. SYRINGE IVP PRN ×3 (02:13→23:39)
[2018-12-20] MEDS: LORazepam 2 MG/ML VIAL IVP PRN ×2 (03:25→20:16)
[2018-12-20] MEDS: METOPROLOL TARTRATE 50 MG TABLET PO SCH ×3 (05:50→21:27)
[2018-12-20] MEDS: PROPOFOL DRIP 100 ML IV PRN ×3 (05:52→20:25)
[2018-12-20] MEDS: INSULIN REGULAR, HUMAN 100 UNITS/ML, 10 ML VIAL (humuLIN R) SUBCUT PRN ×4 (06:10→20:23)
[2018-12-20] MEDS: ACETAMINOPHEN 650 MG/20.3 ML UDC GT PRN ×2 (06:15→20:16)
[2018-12-20 07:21] LABS: BASOPHILS # (AUTO) 0.1 K/uL (0.0-0.2); BASOPHILS % (AUTO) 0.5 % (0.0-2.0); EOSINOPHILS # (AUTO) 0.1 K/uL (0.0-0.4); EOSINOPHILS % (AUTO) 0.8 % (0.0-4.0); HEMATOCRIT 37.5 % (36-54); HEMOGLOBIN 12.6 g/dL (14.0-18.0); LYMPHOCYTES # (AUTO) 0.4 K/uL (1.0-5.5); LYMPHOCYTES % (AUTO) 2.3 % (20.5-51.5); MEAN CORPUSCULAR HEMOGLOBIN 31 pg (27-31); MEAN CORPUSCULAR HGB CONC 34 % (32-36); MEAN CORPUSCULAR VOLUME 93 fL (79.0-98.0); MONOCYTES # (AUTO) 0.6 K/uL (0.0-1.0); MONOCYTES % (AUTO) 4.1 % (1.7-9.3); NEUTROPHILS # (AUTO) 14.4 K/uL (1.8-7.7); NEUTROPHILS % (AUTO) 92.3 % (40.0-70.0); PLATELET COUNT (AUTO) 237 K/uL (130-430); RED BLOOD CELL COUNT(AUTO) 4.04 MIL/uL (4.2-6.2); WHITE BLOOD COUNT (AUTO) 15.6 K/uL (4.8-10.8)
[2018-12-20 07:53] LABS: ALBUMIN 1.4 g/dL (3.4-4.8); CALCIUM 8.7 mg/dL (8.4-11.0); CREATININE 3.04 mg/dL (0.55-1.30); TOTAL BILIRUBIN 0.8 mg/dL (0.0-1.0)
[2018-12-20] MEDS: AMIODARONE HCL 200 MG TABLET PO SCH ×2 (09:11→20:17)
[2018-12-20] MEDS: ENOXAPARIN SODIUM 40 MG/0.4 ML SYRINGE SUBCUT SCH (09:12)
[2018-12-20] MEDS: 0.45% NACL 1,000 ML IV SCH (11:19)
[2018-12-20] MEDS ORDERED: DIPHENHYDRAMINE INJ 50 MG/ML VIAL IVP ONE (19:30)
[2018-12-20] MEDS: FAMOTIDINE PF 20 MG/2 ML VIAL IVP SCH (20:16)
[2018-12-20] MEDS ORDERED: VANCOMYCIN HCL 1 GM/NS PREMIX 250 ML IV SCH (21:00)
[2018-12-20] MEDS ORDERED: VANCOMYCIN HCL 1000 MG/VIAL IV ONE (21:19)
[2018-12-20] MEDS: DIPHENHYDRAMINE INJ 50 MG/ML VIAL IVP SCH (23:38)
[2018-12-21] VITALS (30 sets, daily range): BP systolic 132–184
[2018-12-21] MEDS: LevALBUTEROL HCL 1.25 MG/0.5 ML *CONC.* VIAL.NEB (XOPENEX CONC.) INH SCH ×4 (01:10→19:32)
[2018-12-21] MEDS: 0.45% NACL 1,000 ML IV SCH ×2 (03:37→11:36)
[2018-12-21] MEDS: PROPOFOL DRIP 100 ML IV PRN ×3 (03:39→22:22)
[2018-12-21] MEDS: MORPHINE 2 MG/ML INJ. SYRINGE IVP PRN ×3 (04:50→16:41)
[2018-12-21] MEDS: DIPHENHYDRAMINE INJ 50 MG/ML VIAL IVP SCH ×4 (05:23→23:28)
[2018-12-21] MEDS: LORazepam 2 MG/ML VIAL IVP PRN (05:23)
[2018-12-21] MEDS: METOPROLOL TARTRATE 50 MG TABLET PO SCH ×3 (05:23→21:24)
[2018-12-21 05:29] LABS: BASOPHILS # (AUTO) 0.1 K/uL (0.0-0.2); BASOPHILS % (AUTO) 0.4 % (0.0-2.0); EOSINOPHILS # (AUTO) 0.3 K/uL (0.0-0.4); HEMATOCRIT 36.5 % (36-54); HEMOGLOBIN 12.1 g/dL (14.0-18.0); LYMPHOCYTES # (AUTO) 0.5 K/uL (1.0-5.5); LYMPHOCYTES % (AUTO) 3.4 % (20.5-51.5); MEAN CORPUSCULAR HEMOGLOBIN 31 pg (27-31); MEAN CORPUSCULAR HGB CONC 33 % (32-36); MEAN CORPUSCULAR VOLUME 94 fL (79.0-98.0); MONOCYTES # (AUTO) 0.8 K/uL (0.0-1.0); MONOCYTES % (AUTO) 5.8 % (1.7-9.3); NEUTROPHILS # (AUTO) 12.4 K/uL (1.8-7.7); NEUTROPHILS % (AUTO) 88.4 % (40.0-70.0); PLATELET COUNT (AUTO) 242 K/uL (130-430); RED CELL DISTRIBUTION WIDTH 14.4 % (9.0-15.0); WHITE BLOOD COUNT (AUTO) 14.1 K/uL (4.8-10.8)
[2018-12-21 05:51] LABS: ALBUMIN 1.5 g/dL (3.4-4.8); CALCIUM 8.4 mg/dL (8.4-11.0); CREATININE 2.83 mg/dL (0.55-1.30); POTASSIUM 4.4 mmol/L (3.5-5.1); TOTAL BILIRUBIN 0.5 mg/dL (0.0-1.0)
[2018-12-21] MEDS: INSULIN REGULAR, HUMAN 100 UNITS/ML, 10 ML VIAL (humuLIN R) SUBCUT PRN ×4 (06:53→21:29)
[2018-12-21] MEDS: AMIODARONE HCL 200 MG TABLET PO SCH ×2 (08:58→21:24)
[2018-12-21] MEDS: ENOXAPARIN SODIUM 40 MG/0.4 ML SYRINGE SUBCUT SCH (08:59)
[2018-12-21] MEDS: ACETAMINOPHEN 650 MG/20.3 ML UDC GT PRN (11:44)
[2018-12-21 18:36] LABS: INR 1.2 (0.80-1.20); PROTHROMBIN TIME 11.7 SECS (9.5-12.5)
[2018-12-21] MEDS: FAMOTIDINE PF 20 MG/2 ML VIAL IVP SCH (18:58)
[2018-12-21] MEDS: CEFEPIME 1 GM in D5W 50 ML IV SCH (19:50)
[2018-12-21] MEDS: FLUCONAZOLE 100 mg/ NS 50 ML IV SCH (19:51)
[2018-12-21 21:01] LABS: BILIRUBIN,URINE NEGATIVE (NEGATIVE); BLOOD, URINE 2+ (NEGATIVE); CLARITY/URINE CLEAR (CLEAR); COLOR,URINE YELLOW (YELLOW); GLUCOSE,URINE 2+ (NEGATIVE); KETONES,URINE NEGATIVE (NEGATIVE); LEUKOCYTE ESTERASE ,URINE NEGATIVE (NEGATIVE); NITRITE, URINE NEGATIVE (NEGATIVE); PH,URINE 5.5 (5.0-8.0); PROTEIN URINE TRACE (NEGATIVE); UROBILINOGEN,URINE 0.2 (0.2-1.0)
[2018-12-21 21:16] LABS: RBC,URINE 20-50 /HPF (0-3); WBC,URINE 0-3 /HPF (0-3)
[2018-12-21 21:17] LABS: BACTERIA,URINE RARE /HPF (None Seen); MUCUS,URINE 1+ /LPF (None Seen); URIC ACID CRYSTALS,URINE 0-10 /HPF (None Seen)
[2018-12-21] MEDS: VANCOMYCIN HCL 1,000 MG in NS 250 ML IV SCH (21:27)
[2018-12-22] VITALS (26 sets, daily range): BP systolic 157–197
[2018-12-22] MEDS: LevALBUTEROL HCL 1.25 MG/0.5 ML *CONC.* VIAL.NEB (XOPENEX CONC.) INH SCH ×4 (00:53→19:31)
[2018-12-22] MEDS: MORPHINE 2 MG/ML INJ. SYRINGE IVP PRN ×2 (01:39→06:59)
[2018-12-22] MEDS: 0.45% NACL 1,000 ML IV SCH ×2 (05:35→14:47)
[2018-12-22] MEDS: DIPHENHYDRAMINE INJ 50 MG/ML VIAL IVP SCH ×3 (05:36→17:00)
[2018-12-22] MEDS: METOPROLOL TARTRATE 50 MG TABLET PO SCH ×3 (05:37→22:16)
[2018-12-22] MEDS: INSULIN REGULAR, HUMAN 100 UNITS/ML, 10 ML VIAL (humuLIN R) SUBCUT PRN ×4 (06:06→21:11)
[2018-12-22] MEDS: ACETAMINOPHEN 650 MG/20.3 ML UDC GT PRN ×2 (06:07→20:24)
[2018-12-22] MEDS ORDERED: DILTIAZEM HCL 60 MG TABLET PO ONE (08:15)
[2018-12-22] MEDS: AMIODARONE HCL 200 MG TABLET PO SCH ×2 (08:15→20:18)
[2018-12-22] MEDS: ENOXAPARIN SODIUM 40 MG/0.4 ML SYRINGE SUBCUT SCH (08:27)
[2018-12-22] MEDS: DILTIAZEM HCL 60 MG TABLET PO SCH ×3 (14:37→22:15)
[2018-12-22 15:43] LABS: BASOPHILS % (AUTO) 0.2 % (0.0-2.0); EOSINOPHILS % (AUTO) 0.1 % (0.0-4.0); HEMATOCRIT 41.1 % (36-54); HEMOGLOBIN 13.4 g/dL (14.0-18.0); LYMPHOCYTES # (AUTO) 0.3 K/uL (1.0-5.5); LYMPHOCYTES % (AUTO) 1.9 % (20.5-51.5); MEAN CORPUSCULAR HEMOGLOBIN 30 pg (27-31); MEAN CORPUSCULAR HGB CONC 33 % (32-36); MEAN CORPUSCULAR VOLUME 93 fL (79.0-98.0); MONOCYTES # (AUTO) 0.9 K/uL (0.0-1.0); MONOCYTES % (AUTO) 5.2 % (1.7-9.3); NEUTROPHILS # (AUTO) 16.1 K/uL (1.8-7.7); NEUTROPHILS % (AUTO) 92.6 % (40.0-70.0); PLATELET COUNT (AUTO) 281 K/uL (130-430); RED BLOOD CELL COUNT(AUTO) 4.42 MIL/uL (4.2-6.2); RED CELL DISTRIBUTION WIDTH 14.2 % (9.0-15.0); WHITE BLOOD COUNT (AUTO) 17.4 K/uL (4.8-10.8)
[2018-12-22 15:58] LABS: CALCIUM 8.9 mg/dL (8.4-11.0); CREATININE 2.27 mg/dL (0.55-1.30); POTASSIUM 3.8 mmol/L (3.5-5.1)
[2018-12-22 16:04] LABS: ALBUMIN 1.7 g/dL (3.4-4.8); TOTAL BILIRUBIN 0.7 mg/dL (0.0-1.0)
[2018-12-22] MEDS: FLUCONAZOLE 100 mg/ NS 50 ML IV SCH (17:00)
[2018-12-22] MEDS: CEFEPIME 1 GM in D5W 50 ML IV SCH (17:00)
[2018-12-22] MEDS ORDERED: MINERAL OIL/PETROLATUM,WHITE 113 GM CREAM.GM. TP ONE (18:45)
[2018-12-22] MEDS ORDERED: METOPROLOL TARTRATE 5 MG/5 ML VIAL ONE (20:24)
[2018-12-22] MEDS: METOPROLOL TARTRATE 5 MG/5 ML VIAL IVP PRN (20:36)
[2018-12-22] MEDS: FAMOTIDINE PF 20 MG/2 ML VIAL IVP SCH (20:53)
[2018-12-22] MEDS: VANCOMYCIN HCL 1,000 MG in NS 250 ML IV SCH (20:54)
[2018-12-23] VITALS (24 sets, daily range): BP systolic 142–186
[2018-12-23] MEDS: DIPHENHYDRAMINE INJ 50 MG/ML VIAL IVP SCH ×5 (00:37→23:50)
[2018-12-23] MEDS: METOPROLOL TARTRATE 5 MG/5 ML VIAL IVP PRN ×9 (00:37→23:51)
[2018-12-23] MEDS: LevALBUTEROL HCL 1.25 MG/0.5 ML *CONC.* VIAL.NEB (XOPENEX CONC.) INH SCH ×4 (01:45→20:00)
[2018-12-23 05:16] LABS: BASOPHILS # (AUTO) 0.1 K/uL (0.0-0.2); BASOPHILS % (AUTO) 0.6 % (0.0-2.0); EOSINOPHILS % (AUTO) 0.1 % (0.0-4.0); HEMATOCRIT 44.3 % (36-54); HEMOGLOBIN 14.6 g/dL (14.0-18.0); LYMPHOCYTES # (AUTO) 0.4 K/uL (1.0-5.5); LYMPHOCYTES % (AUTO) 2.5 % (20.5-51.5); MEAN CORPUSCULAR HEMOGLOBIN 31 pg (27-31); MEAN CORPUSCULAR HGB CONC 33 % (32-36); MEAN CORPUSCULAR VOLUME 94 fL (79.0-98.0); MONOCYTES % (AUTO) 6.7 % (1.7-9.3); NEUTROPHILS # (AUTO) 13.7 K/uL (1.8-7.7); NEUTROPHILS % (AUTO) 90.1 % (40.0-70.0); PLATELET COUNT (AUTO) 291 K/uL (130-430); RED BLOOD CELL COUNT(AUTO) 4.73 MIL/uL (4.2-6.2); RED CELL DISTRIBUTION WIDTH 14.6 % (9.0-15.0); WHITE BLOOD COUNT (AUTO) 15.2 K/uL (4.8-10.8)
[2018-12-23 05:58] LABS: ALBUMIN 1.9 g/dL (3.4-4.8); CALCIUM 9.1 mg/dL (8.4-11.0); CREATININE 2.26 mg/dL (0.55-1.30); POTASSIUM 3.7 mmol/L (3.5-5.1)
[2018-12-23] MEDS: DILTIAZEM HCL 60 MG TABLET PO SCH ×3 (06:23→21:46)
[2018-12-23] MEDS: METOPROLOL TARTRATE 50 MG TABLET PO SCH ×3 (06:24→21:46)
[2018-12-23] MEDS: INSULIN REGULAR, HUMAN 100 UNITS/ML, 10 ML VIAL (humuLIN R) SUBCUT PRN ×4 (06:28→21:41)
[2018-12-23] MEDS: 0.45% NACL 1,000 ML IV SCH ×2 (06:32→17:36)
[2018-12-23] MEDS ORDERED: INSULIN REGULAR, HUMAN 100 UNITS/ML, 10 ML VIAL SUBCUT ONE (07:30)
[2018-12-23] MEDS: MINERAL OIL/PETROLATUM,WHITE 113 GM CREAM.GM. TP SCH (09:28)
[2018-12-23] MEDS: ENOXAPARIN SODIUM 40 MG/0.4 ML SYRINGE SUBCUT SCH (09:29)
[2018-12-23] MEDS ORDERED: INSULIN GLARGINE 100 UNITS/ML 10 ML VIAL SUBCUT ONE (12:15)
[2018-12-23] MEDS: CEFEPIME 1 GM in D5W 50 ML IV SCH (17:38)
[2018-12-23] MEDS: FLUCONAZOLE 100 mg/ NS 50 ML IV SCH (17:38)
[2018-12-23] MEDS: FAMOTIDINE PF 20 MG/2 ML VIAL IVP SCH (19:53)
[2018-12-23] MEDS ORDERED: INSULIN GLARGINE 100 UNITS/ML 10 ML VIAL SUBCUT SCH (21:00)
[2018-12-23] MEDS: VANCOMYCIN HCL 1,000 MG in NS 250 ML IV SCH (21:45)
[2018-12-24] VITALS (25 sets, daily range): BP systolic 148–199
[2018-12-24] MEDS: LevALBUTEROL HCL 1.25 MG/0.5 ML *CONC.* VIAL.NEB (XOPENEX CONC.) INH SCH ×4 (01:06→19:48)
[2018-12-24] MEDS: METOPROLOL TARTRATE 5 MG/5 ML VIAL IVP PRN ×6 (02:34→18:20)
[2018-12-24 05:29] LABS: BASOPHILS # (AUTO) 0.1 K/uL (0.0-0.2); BASOPHILS % (AUTO) 0.8 % (0.0-2.0); EOSINOPHILS % (AUTO) 0.2 % (0.0-4.0); HEMATOCRIT 42.1 % (36-54); HEMOGLOBIN 13.9 g/dL (14.0-18.0); LYMPHOCYTES # (AUTO) 0.5 K/uL (1.0-5.5); LYMPHOCYTES % (AUTO) 4.1 % (20.5-51.5); MEAN CORPUSCULAR HEMOGLOBIN 31 pg (27-31); MEAN CORPUSCULAR HGB CONC 33 % (32-36); MEAN CORPUSCULAR VOLUME 93 fL (79.0-98.0); MONOCYTES # (AUTO) 1.1 K/uL (0.0-1.0); MONOCYTES % (AUTO) 8.7 % (1.7-9.3); NEUTROPHILS # (AUTO) 11.1 K/uL (1.8-7.7); NEUTROPHILS % (AUTO) 86.2 % (40.0-70.0); PLATELET COUNT (AUTO) 238 K/uL (130-430); RED BLOOD CELL COUNT(AUTO) 4.51 MIL/uL (4.2-6.2); RED CELL DISTRIBUTION WIDTH 14.1 % (9.0-15.0); WHITE BLOOD COUNT (AUTO) 12.9 K/uL (4.8-10.8)
[2018-12-24] MEDS: DIPHENHYDRAMINE INJ 50 MG/ML VIAL IVP SCH ×3 (05:44→17:15)
[2018-12-24] MEDS: METOPROLOL TARTRATE 50 MG TABLET PO SCH ×3 (05:45→22:22)
[2018-12-24] MEDS: ACETAMINOPHEN 650 MG/20.3 ML UDC GT PRN (05:47)
[2018-12-24] MEDS: DILTIAZEM HCL 60 MG TABLET PO SCH ×3 (05:48→22:21)
[2018-12-24 05:49] LABS: ALBUMIN 1.8 g/dL (3.4-4.8); CALCIUM 8.3 mg/dL (8.4-11.0); CREATININE 2.32 mg/dL (0.55-1.30); POTASSIUM 3.3 mmol/L (3.5-5.1); TOTAL BILIRUBIN 0.7 mg/dL (0.0-1.0)
[2018-12-24] MEDS: INSULIN REGULAR, HUMAN 100 UNITS/ML, 10 ML VIAL (humuLIN R) SUBCUT PRN ×4 (06:28→20:26)
[2018-12-24] MEDS ORDERED: POTASSIUM CHLORIDE 20 MEQ/PKT PACKET PO ONE (08:15)
[2018-12-24] MEDS: INSULIN GLARGINE 100 UNITS/ML 10 ML VIAL SUBCUT SCH (09:21)
[2018-12-24] MEDS: ENOXAPARIN SODIUM 40 MG/0.4 ML SYRINGE SUBCUT SCH (09:22)
[2018-12-24] MEDS: MINERAL OIL/PETROLATUM,WHITE 113 GM CREAM.GM. TP SCH (09:24)
[2018-12-24] MEDS: 0.45% NACL 1,000 ML IV SCH (09:26)
[2018-12-24] MEDS: CEFEPIME 1 GM in D5W 50 ML IV SCH (17:15)
[2018-12-24] MEDS: FLUCONAZOLE 100 mg/ NS 50 ML IV SCH (18:06)
[2018-12-24] MEDS: FAMOTIDINE PF 20 MG/2 ML VIAL IVP SCH (20:08)
[2018-12-24] MEDS: VANCOMYCIN HCL 1,500 MG in NS 250 ML IV SCH (20:10)
[2018-12-25] VITALS (24 sets, daily range): BP systolic 126–184
[2018-12-25] MEDS: DIPHENHYDRAMINE INJ 50 MG/ML VIAL IVP SCH ×5 (00:12→23:33)
[2018-12-25] MEDS: METOPROLOL TARTRATE 5 MG/5 ML VIAL IVP PRN ×5 (00:13→13:44)
[2018-12-25] MEDS: LevALBUTEROL HCL 1.25 MG/0.5 ML *CONC.* VIAL.NEB (XOPENEX CONC.) INH SCH ×4 (00:58→20:11)
[2018-12-25] MEDS: METOPROLOL TARTRATE 50 MG TABLET PO SCH ×3 (05:58→22:05)
[2018-12-25] MEDS: DILTIAZEM HCL 60 MG TABLET PO SCH ×3 (05:59→22:06)
[2018-12-25 06:31] LABS: ALBUMIN 2.1 g/dL (3.4-4.8); CALCIUM 8.8 mg/dL (8.4-11.0); CREATININE 2.18 mg/dL (0.55-1.30); POTASSIUM 3.2 mmol/L (3.5-5.1); TOTAL BILIRUBIN 0.7 mg/dL (0.0-1.0)
[2018-12-25] MEDS: INSULIN REGULAR, HUMAN 100 UNITS/ML, 10 ML VIAL (humuLIN R) SUBCUT PRN ×4 (06:57→20:26)
[2018-12-25 07:08] LABS: BASOPHILS # (AUTO) 0.1 K/uL (0.0-0.2); EOSINOPHILS # (AUTO) 0.1 K/uL (0.0-0.4); EOSINOPHILS % (AUTO) 1.2 % (0.0-4.0); HEMATOCRIT 42.8 % (36-54); LYMPHOCYTES # (AUTO) 0.7 K/uL (1.0-5.5); LYMPHOCYTES % (AUTO) 6.7 % (20.5-51.5); MEAN CORPUSCULAR HEMOGLOBIN 31 pg (27-31); MEAN CORPUSCULAR HGB CONC 33 % (32-36); MEAN CORPUSCULAR VOLUME 94 fL (79.0-98.0); MONOCYTES # (AUTO) 0.6 K/uL (0.0-1.0); MONOCYTES % (AUTO) 5.6 % (1.7-9.3); NEUTROPHILS # (AUTO) 9.2 K/uL (1.8-7.7); NEUTROPHILS % (AUTO) 85.5 % (40.0-70.0); PLATELET COUNT (AUTO) 202 K/uL (130-430); RED BLOOD CELL COUNT(AUTO) 4.55 MIL/uL (4.2-6.2); RED CELL DISTRIBUTION WIDTH 13.8 % (9.0-15.0); WHITE BLOOD COUNT (AUTO) 10.8 K/uL (4.8-10.8)
[2018-12-25] MEDS: ENOXAPARIN SODIUM 40 MG/0.4 ML SYRINGE SUBCUT SCH (08:27)
[2018-12-25] MEDS: INSULIN GLARGINE 100 UNITS/ML 10 ML VIAL SUBCUT SCH (08:30)
[2018-12-25] MEDS: MINERAL OIL/PETROLATUM,WHITE 113 GM CREAM.GM. TP SCH (08:33)
[2018-12-25] MEDS ORDERED: POTASSIUM CHLORIDE 20 MEQ/PKT PACKET PO ONE (10:15)
[2018-12-25] MEDS: CEFEPIME 1 GM in D5W 50 ML IV SCH (18:20)
[2018-12-25] MEDS: FLUCONAZOLE 100 mg/ NS 50 ML IV SCH (19:25)
[2018-12-25] MEDS: FAMOTIDINE PF 20 MG/2 ML VIAL IVP SCH (20:21)
[2018-12-25] MEDS: VANCOMYCIN HCL 1,500 MG in NS 250 ML IV SCH (20:21)
[2018-12-26] VITALS (24 sets, daily range): BP systolic 117–177
[2018-12-26] MEDS: LevALBUTEROL HCL 1.25 MG/0.5 ML *CONC.* VIAL.NEB (XOPENEX CONC.) INH SCH ×4 (01:42→19:36)
[2018-12-26] MEDS: METOPROLOL TARTRATE 5 MG/5 ML VIAL IVP PRN ×4 (02:19→18:55)
[2018-12-26] MEDS: LevALBUTEROL HCL 1.25 MG/0.5 ML *CONC.* VIAL.NEB (XOPENEX CONC.) INH PRN (03:45)
[2018-12-26] MEDS: DIPHENHYDRAMINE INJ 50 MG/ML VIAL IVP SCH (05:58)
[2018-12-26] MEDS: METOPROLOL TARTRATE 50 MG TABLET PO SCH ×3 (05:59→22:00)
[2018-12-26] MEDS: DILTIAZEM HCL 60 MG TABLET PO SCH ×3 (05:59→21:59)
[2018-12-26] MEDS: INSULIN REGULAR, HUMAN 100 UNITS/ML, 10 ML VIAL (humuLIN R) SUBCUT PRN ×4 (06:08→20:28)
[2018-12-26] MEDS: ENOXAPARIN SODIUM 40 MG/0.4 ML SYRINGE SUBCUT SCH (08:40)
[2018-12-26] MEDS: INSULIN GLARGINE 100 UNITS/ML 10 ML VIAL SUBCUT SCH ×2 (08:43→20:26)
[2018-12-26] MEDS: MINERAL OIL/PETROLATUM,WHITE 113 GM CREAM.GM. TP SCH (08:45)
[2018-12-26] MEDS ORDERED: INSULIN GLARGINE 100 UNITS/ML 10 ML VIAL SUBCUT SCH (09:00)
[2018-12-26] MEDS ORDERED: BISACODYL 10 MG/SUPPOSITORY RC ONE (13:00)
[2018-12-26] MEDS ORDERED: BISACODYL 10 MG/SUPPOSITORY RC PRN (13:00)
[2018-12-26] MEDS: CEFEPIME 1 GM in D5W 50 ML IV SCH (17:18)
[2018-12-26] MEDS: FLUCONAZOLE 100 mg/ NS 50 ML IV SCH (17:57)
[2018-12-26 18:38] LABS: CALCIUM 8.4 mg/dL (8.4-11.0); CREATININE 2.42 mg/dL (0.55-1.30); POTASSIUM 3.3 mmol/L (3.5-5.1)
[2018-12-26] MEDS: D5W 1,000 ML IV SCH (19:12)
[2018-12-26] MEDS ORDERED: KCL 40 mEq in 100 mL (PREMIX) 100 ML IV SCH (19:30)
[2018-12-26] MEDS: FAMOTIDINE PF 20 MG/2 ML VIAL IVP SCH (20:20)
[2018-12-26] MEDS: VANCOMYCIN HCL 1,500 MG in NS 250 ML IV SCH (20:21)
[2018-12-27] VITALS (25 sets, daily range): BP systolic 120–180
[2018-12-27] MEDS: LevALBUTEROL HCL 1.25 MG/0.5 ML *CONC.* VIAL.NEB (XOPENEX CONC.) INH SCH ×4 (00:49→19:35)
[2018-12-27] MEDS: LevALBUTEROL HCL 1.25 MG/0.5 ML *CONC.* VIAL.NEB (XOPENEX CONC.) INH PRN (04:29)
[2018-12-27] MEDS: METOPROLOL TARTRATE 5 MG/5 ML VIAL IVP PRN ×3 (05:05→11:22)
[2018-12-27 05:45] LABS: BASOPHILS # (AUTO) 0.1 K/uL (0.0-0.2); BASOPHILS % (AUTO) 0.6 % (0.0-2.0); EOSINOPHILS # (AUTO) 0.5 K/uL (0.0-0.4); EOSINOPHILS % (AUTO) 4.7 % (0.0-4.0); HEMATOCRIT 38.2 % (36-54); HEMOGLOBIN 12.6 g/dL (14.0-18.0); LYMPHOCYTES # (AUTO) 0.8 K/uL (1.0-5.5); LYMPHOCYTES % (AUTO) 7.7 % (20.5-51.5); MEAN CORPUSCULAR HEMOGLOBIN 31 pg (27-31); MEAN CORPUSCULAR HGB CONC 33 % (32-36); MEAN CORPUSCULAR VOLUME 95 fL (79.0-98.0); MONOCYTES # (AUTO) 0.5 K/uL (0.0-1.0); MONOCYTES % (AUTO) 4.4 % (1.7-9.3); NEUTROPHILS # (AUTO) 8.6 K/uL (1.8-7.7); NEUTROPHILS % (AUTO) 82.6 % (40.0-70.0); PLATELET COUNT (AUTO) 134 K/uL (130-430); RED BLOOD CELL COUNT(AUTO) 4.03 MIL/uL (4.2-6.2); RED CELL DISTRIBUTION WIDTH 14.1 % (9.0-15.0); WHITE BLOOD COUNT (AUTO) 10.4 K/uL (4.8-10.8)
[2018-12-27 05:54] LABS: CALCIUM 8.5 mg/dL (8.4-11.0); CREATININE 2.33 mg/dL (0.55-1.30); POTASSIUM 3.4 mmol/L (3.5-5.1)
[2018-12-27] MEDS: METOPROLOL TARTRATE 50 MG TABLET PO SCH ×4 (06:00→21:20)
[2018-12-27] MEDS: DILTIAZEM HCL 60 MG TABLET PO SCH ×4 (06:00→21:21)
[2018-12-27] MEDS: INSULIN REGULAR, HUMAN 100 UNITS/ML, 10 ML VIAL (humuLIN R) SUBCUT PRN ×4 (06:24→21:40)
[2018-12-27] MEDS: D5W 1,000 ML IV SCH (08:42)
[2018-12-27] MEDS: MINERAL OIL/PETROLATUM,WHITE 113 GM CREAM.GM. TP SCH (08:44)
[2018-12-27] MEDS: ENOXAPARIN SODIUM 40 MG/0.4 ML SYRINGE SUBCUT SCH (08:44)
[2018-12-27] MEDS: INSULIN GLARGINE 100 UNITS/ML 10 ML VIAL SUBCUT SCH ×2 (08:47→21:00)
[2018-12-27] MEDS ORDERED: POTASSIUM CHLORIDE 20 MEQ TAB.PRT.SR PO ONE (09:45)
[2018-12-27] MEDS: 0.45% NACL 1,000 ML IV SCH ×3 (10:59→15:56)
[2018-12-27] MEDS ORDERED: NS 500 ML IV ONE (11:15)
[2018-12-27] MEDS ORDERED: FLUCONAZOLE 100 mg/ NS 50 ML IV SCH (18:15)
[2018-12-27] MEDS ORDERED: CEFEPIME 1 GM in D5W 50 ML IV SCH (18:15)
[2018-12-27] MEDS ORDERED: DDAVP 0.01% NS SCH (18:45)
[2018-12-27] MEDS: FAMOTIDINE PF 20 MG/2 ML VIAL IVP SCH (21:22)
[2018-12-27] MEDS: VANCOMYCIN HCL 1,500 MG in NS 250 ML IV SCH (21:23)
[2018-12-27] MEDS ORDERED: INSULIN GLARGINE 100 UNITS/ML 10 ML VIAL SUBCUT ONE (22:15)
[2018-12-28] VITALS (24 sets, daily range): BP systolic 108–162
[2018-12-28] MEDS: LevALBUTEROL HCL 1.25 MG/0.5 ML *CONC.* VIAL.NEB (XOPENEX CONC.) INH SCH ×4 (00:03→19:45)
[2018-12-28] MEDS: 0.45% NACL 1,000 ML IV SCH ×2 (01:51→12:53)
[2018-12-28] MEDS: DILTIAZEM HCL 60 MG TABLET PO SCH ×3 (05:44→21:50)
[2018-12-28] MEDS: METOPROLOL TARTRATE 50 MG TABLET PO SCH ×3 (05:44→21:50)
[2018-12-28] MEDS: METOPROLOL TARTRATE 5 MG/5 ML VIAL IVP PRN (05:45)
[2018-12-28 05:47] LABS: ALANINE AMINOTRANSFERASE 132 U/L (12-78); ALBUMIN 1.8 g/dL (3.4-4.8); ASPARTATE AMINOTRANSFERASE 27 U/L (10-37); CALCIUM 8.2 mg/dL (8.4-11.0); CREATININE 1.81 mg/dL (0.55-1.30); GLUCOSE 99 mg/dL (70-99); POTASSIUM 3.1 mmol/L (3.5-5.1); SODIUM SERUM 157 mmol/L (136-145); TOTAL BILIRUBIN 0.9 mg/dL (0.0-1.0); UREA NITROGEN, BLOOD 47 mg/dL (8-21)
[2018-12-28 05:51] LABS: GFR AFRICAN AMERICAN 49 mL/min (>90)
[2018-12-28 05:53] LABS: BASOPHILS # (AUTO) 0.1 K/uL (0.0-0.2); BASOPHILS % (AUTO) 0.6 % (0.0-2.0); EOSINOPHILS # (AUTO) 0.9 K/uL (0.0-0.4); EOSINOPHILS % (AUTO) 8.9 % (0.0-4.0); LYMPHOCYTES # (AUTO) 0.7 K/uL (1.0-5.5); LYMPHOCYTES % (AUTO) 7.5 % (20.5-51.5); MEAN CORPUSCULAR HEMOGLOBIN 31 pg (27-31); MEAN CORPUSCULAR HGB CONC 33 % (32-36); MEAN CORPUSCULAR VOLUME 95 fL (79.0-98.0); MONOCYTES # (AUTO) 0.4 K/uL (0.0-1.0); MONOCYTES % (AUTO) 4.2 % (1.7-9.3); NEUTROPHILS # (AUTO) 7.7 K/uL (1.8-7.7); NEUTROPHILS % (AUTO) 78.8 % (40.0-70.0); RED BLOOD CELL COUNT(AUTO) 3.89 MIL/uL (4.2-6.2); RED CELL DISTRIBUTION WIDTH 13.8 % (9.0-15.0); WHITE BLOOD COUNT (AUTO) 9.8 K/uL (4.8-10.8)
[2018-12-28 05:54] LABS: ANION GAP < 3 (5-15); CHLORIDE 120 mmol/L (98-107)
[2018-12-28 06:04] LABS: PLATELET COUNT (AUTO) 105 K/uL (130-430)
[2018-12-28] MEDS: INSULIN REGULAR, HUMAN 100 UNITS/ML, 10 ML VIAL (humuLIN R) SUBCUT PRN ×3 (06:35→21:45)
[2018-12-28] MEDS: INSULIN GLARGINE 100 UNITS/ML 10 ML VIAL SUBCUT SCH ×2 (08:02→21:47)
[2018-12-28] MEDS: MINERAL OIL/PETROLATUM,WHITE 113 GM CREAM.GM. TP SCH (08:09)
[2018-12-28] MEDS: ENOXAPARIN SODIUM 40 MG/0.4 ML SYRINGE SUBCUT SCH (08:10)
[2018-12-28] MEDS ORDERED: POTASSIUM CHLORIDE 20 MEQ TAB.PRT.SR PO ONE (10:00)
[2018-12-28] MEDS ORDERED: DESMOPRESSIN ACETATE 4 MCG/ML AMP IV SCH (12:45)
[2018-12-28] MEDS: FAMOTIDINE PF 20 MG/2 ML VIAL IVP SCH (21:43)
[2018-12-29] VITALS (12 sets, daily range): BP systolic 122–155
[2018-12-29] MEDS: 0.45% NACL 1,000 ML IV SCH (00:11)
[2018-12-29] MEDS: LevALBUTEROL HCL 1.25 MG/0.5 ML *CONC.* VIAL.NEB (XOPENEX CONC.) INH SCH ×4 (01:05→19:57)
[2018-12-29] MEDS ORDERED: DILTIAZEM HCL 60 MG TABLET ONE (05:20)
[2018-12-29 05:24] LABS: BASOPHILS # (AUTO) 0.1 K/uL (0.0-0.2); BASOPHILS % (AUTO) 0.9 % (0.0-2.0); EOSINOPHILS # (AUTO) 0.6 K/uL (0.0-0.4); EOSINOPHILS % (AUTO) 8.5 % (0.0-4.0); HEMATOCRIT 34.7 % (36-54); HEMOGLOBIN 11.3 g/dL (14.0-18.0); LYMPHOCYTES # (AUTO) 0.5 K/uL (1.0-5.5); MEAN CORPUSCULAR HEMOGLOBIN 31 pg (27-31); MEAN CORPUSCULAR HGB CONC 33 % (32-36); MEAN CORPUSCULAR VOLUME 94 fL (79.0-98.0); MONOCYTES # (AUTO) 0.4 K/uL (0.0-1.0); MONOCYTES % (AUTO) 5.2 % (1.7-9.3); NEUTROPHILS # (AUTO) 5.6 K/uL (1.8-7.7); NEUTROPHILS % (AUTO) 78.4 % (40.0-70.0); PLATELET COUNT (AUTO) 96 K/uL (130-430); RED BLOOD CELL COUNT(AUTO) 3.69 MIL/uL (4.2-6.2); RED CELL DISTRIBUTION WIDTH 13.4 % (9.0-15.0); WHITE BLOOD COUNT (AUTO) 7.2 K/uL (4.8-10.8)
[2018-12-29 05:45] LABS: ALBUMIN 1.8 g/dL (3.4-4.8); CALCIUM 7.7 mg/dL (8.4-11.0); CREATININE 1.89 mg/dL (0.55-1.30); POTASSIUM 3.5 mmol/L (3.5-5.1); TOTAL BILIRUBIN 0.5 mg/dL (0.0-1.0)
[2018-12-29] MEDS: METOPROLOL TARTRATE 50 MG TABLET PO SCH ×3 (05:53→21:58)
[2018-12-29] MEDS: DILTIAZEM HCL 60 MG TABLET PO SCH ×3 (05:54→21:57)
[2018-12-29] MEDS: METOPROLOL TARTRATE 5 MG/5 ML VIAL IVP PRN (06:06)
[2018-12-29] MEDS: INSULIN REGULAR, HUMAN 100 UNITS/ML, 10 ML VIAL (humuLIN R) SUBCUT PRN ×4 (06:08→22:06)
[2018-12-29] MEDS: INSULIN GLARGINE 100 UNITS/ML 10 ML VIAL SUBCUT SCH ×2 (09:26→22:06)
[2018-12-29] MEDS: ENOXAPARIN SODIUM 40 MG/0.4 ML SYRINGE SUBCUT SCH (09:27)
[2018-12-29] MEDS: MINERAL OIL/PETROLATUM,WHITE 113 GM CREAM.GM. TP SCH (09:36)
[2018-12-29] MEDS ORDERED: DESMOPRESSIN ACETATE 4 MCG/ML AMP IVP ONE (09:45)
[2018-12-29] MEDS: D5W 1,000 ML IV SCH ×2 (10:10→23:12)
[2018-12-29] MEDS: FAMOTIDINE PF 20 MG/2 ML VIAL IVP SCH (21:58)
[2018-12-30 01:20] VITALS: BP_SYST 130
[2018-12-30] MEDS: LevALBUTEROL HCL 1.25 MG/0.5 ML *CONC.* VIAL.NEB (XOPENEX CONC.) INH SCH ×4 (01:45→19:58)
[2018-12-30] MEDS: METOPROLOL TARTRATE 50 MG TABLET PO SCH ×3 (06:28→21:03)
[2018-12-30] MEDS: DILTIAZEM HCL 60 MG TABLET PO SCH ×3 (06:28→21:04)
[2018-12-30] MEDS: INSULIN REGULAR, HUMAN 100 UNITS/ML, 10 ML VIAL (humuLIN R) SUBCUT PRN ×4 (06:35→21:12)
[2018-12-30 07:17] VITALS: BP_SYST 162
[2018-12-30 08:11] LABS: BASOPHILS % (AUTO) 0.8 % (0.0-2.0); EOSINOPHILS # (AUTO) 0.5 K/uL (0.0-0.4); EOSINOPHILS % (AUTO) 8.9 % (0.0-4.0); HEMATOCRIT 37.4 % (36-54); HEMOGLOBIN 12.5 g/dL (14.0-18.0); LYMPHOCYTES # (AUTO) 0.4 K/uL (1.0-5.5); LYMPHOCYTES % (AUTO) 7.2 % (20.5-51.5); MEAN CORPUSCULAR HEMOGLOBIN 31 pg (27-31); MEAN CORPUSCULAR HGB CONC 33 % (32-36); MEAN CORPUSCULAR VOLUME 93 fL (79.0-98.0); MONOCYTES # (AUTO) 0.4 K/uL (0.0-1.0); MONOCYTES % (AUTO) 5.9 % (1.7-9.3); NEUTROPHILS # (AUTO) 4.6 K/uL (1.8-7.7); NEUTROPHILS % (AUTO) 77.2 % (40.0-70.0); PLATELET COUNT (AUTO) 98 K/uL (130-430); RED BLOOD CELL COUNT(AUTO) 4.02 MIL/uL (4.2-6.2); RED CELL DISTRIBUTION WIDTH 13.4 % (9.0-15.0)
[2018-12-30 08:15] VITALS: BP_SYST 129
[2018-12-30 08:28] LABS: ALANINE AMINOTRANSFERASE 79 U/L (12-78); ALBUMIN 1.8 g/dL (3.4-4.8); ASPARTATE AMINOTRANSFERASE 26 U/L (10-37); CALCIUM 8.2 mg/dL (8.4-11.0); CHLORIDE 111 mmol/L (98-107); GLUCOSE 204 mg/dL (70-99); POTASSIUM 3.1 mmol/L (3.5-5.1); SODIUM SERUM 145 mmol/L (136-145); TOTAL BILIRUBIN 0.7 mg/dL (0.0-1.0); UREA NITROGEN, BLOOD 50 mg/dL (8-21)
[2018-12-30 08:29] LABS: ANION GAP < 3 (5-15); GFR AFRICAN AMERICAN 53 mL/min (>90)
[2018-12-30] MEDS: MINERAL OIL/PETROLATUM,WHITE 113 GM CREAM.GM. TP SCH (08:49)
[2018-12-30] MEDS: ENOXAPARIN SODIUM 40 MG/0.4 ML SYRINGE SUBCUT SCH (08:50)
[2018-12-30] MEDS: INSULIN GLARGINE 100 UNITS/ML 10 ML VIAL SUBCUT SCH ×2 (08:52→21:09)
[2018-12-30 12:00] VITALS: BP_SYST 141
[2018-12-30] MEDS: D5W 1,000 ML IV SCH (12:24)
[2018-12-30] MEDS ORDERED: POTASSIUM CHLORIDE 20 MEQ TAB.PRT.SR PO ONE (15:00)
[2018-12-30] MEDS ORDERED: POTASSIUM CHLORIDE 20 MEQ/PKT PACKET PO ONE (15:15)
[2018-12-30 16:17] VITALS: BP_SYST 144
[2018-12-30 20:00] VITALS: BP_SYST 142
[2018-12-30] MEDS: FAMOTIDINE PF 20 MG/2 ML VIAL IVP SCH (21:04)
[2018-12-31 00:07] VITALS: BP_SYST 135
[2018-12-31] MEDS: D5W 1,000 ML IV SCH ×2 (02:10→18:16)
[2018-12-31] MEDS: LevALBUTEROL HCL 1.25 MG/0.5 ML *CONC.* VIAL.NEB (XOPENEX CONC.) INH SCH ×4 (03:30→20:03)
[2018-12-31] MEDS: INSULIN REGULAR, HUMAN 100 UNITS/ML, 10 ML VIAL (humuLIN R) SUBCUT PRN ×4 (06:06→21:48)
[2018-12-31] MEDS: METOPROLOL TARTRATE 50 MG TABLET PO SCH ×3 (06:09→21:47)
[2018-12-31] MEDS: DILTIAZEM HCL 60 MG TABLET PO SCH (06:10)
[2018-12-31 07:19] LABS: ALANINE AMINOTRANSFERASE 92 U/L (12-78); ALBUMIN 1.9 g/dL (3.4-4.8); ASPARTATE AMINOTRANSFERASE 46 U/L (10-37); CALCIUM 8.2 mg/dL (8.4-11.0); CHLORIDE 108 mmol/L (98-107); CREATININE 1.55 mg/dL (0.55-1.30); GLUCOSE 186 mg/dL (70-99); POTASSIUM 3.1 mmol/L (3.5-5.1); SODIUM SERUM 143 mmol/L (136-145); TOTAL BILIRUBIN 0.6 mg/dL (0.0-1.0); UREA NITROGEN, BLOOD 39 mg/dL (8-21)
[2018-12-31 07:20] LABS: ANION GAP < 3 (5-15); GFR AFRICAN AMERICAN 59 mL/min (>90)
[2018-12-31 08:00] VITALS: BP_SYST 140
[2018-12-31] MEDS ORDERED: POTASSIUM CHLORIDE 20 MEQ TAB.PRT.SR PO ONE (08:15)
[2018-12-31] MEDS: ENOXAPARIN SODIUM 40 MG/0.4 ML SYRINGE SUBCUT SCH (10:01)
[2018-12-31] MEDS: INSULIN GLARGINE 100 UNITS/ML 10 ML VIAL SUBCUT SCH ×2 (10:03→21:47)
[2018-12-31] MEDS: MINERAL OIL/PETROLATUM,WHITE 113 GM CREAM.GM. TP SCH (10:12)
[2018-12-31 12:00] VITALS: BP_SYST 136
[2018-12-31 16:35] VITALS: BP_SYST 136
[2018-12-31 20:00] VITALS: BP_SYST 150
[2018-12-31] MEDS: FAMOTIDINE PF 20 MG/2 ML VIAL IVP SCH (21:45)
[2019-01-01] VITALS: BP_SYST 144
[2019-01-01] MEDS: LevALBUTEROL HCL 1.25 MG/0.5 ML *CONC.* VIAL.NEB (XOPENEX CONC.) INH SCH ×4 (02:08→19:27)
[2019-01-01] MEDS: INSULIN REGULAR, HUMAN 100 UNITS/ML, 10 ML VIAL (humuLIN R) SUBCUT PRN ×4 (06:10→21:56)
[2019-01-01] MEDS: METOPROLOL TARTRATE 50 MG TABLET PO SCH ×3 (06:11→21:49)
[2019-01-01 06:25] LABS: BASOPHILS % (AUTO) 0.6 % (0.0-2.0); EOSINOPHILS # (AUTO) 0.3 K/uL (0.0-0.4); EOSINOPHILS % (AUTO) 4.3 % (0.0-4.0); HEMATOCRIT 35.6 % (36-54); LYMPHOCYTES # (AUTO) 0.7 K/uL (1.0-5.5); LYMPHOCYTES % (AUTO) 9.5 % (20.5-51.5); MEAN CORPUSCULAR HEMOGLOBIN 31 pg (27-31); MEAN CORPUSCULAR HGB CONC 34 % (32-36); MEAN CORPUSCULAR VOLUME 92 fL (79.0-98.0); MONOCYTES # (AUTO) 0.5 K/uL (0.0-1.0); MONOCYTES % (AUTO) 7.2 % (1.7-9.3); NEUTROPHILS # (AUTO) 5.3 K/uL (1.8-7.7); NEUTROPHILS % (AUTO) 78.4 % (40.0-70.0); PLATELET COUNT (AUTO) 115 K/uL (130-430); RED BLOOD CELL COUNT(AUTO) 3.87 MIL/uL (4.2-6.2); RED CELL DISTRIBUTION WIDTH 13.4 % (9.0-15.0); WHITE BLOOD COUNT (AUTO) 6.8 K/uL (4.8-10.8)
[2019-01-01 06:57] LABS: ALBUMIN 1.9 g/dL (3.4-4.8); CALCIUM 8.3 mg/dL (8.4-11.0); CREATININE 1.42 mg/dL (0.55-1.30); TOTAL BILIRUBIN 0.5 mg/dL (0.0-1.0)
[2019-01-01] MEDS: ENOXAPARIN SODIUM 40 MG/0.4 ML SYRINGE SUBCUT SCH (08:43)
[2019-01-01] MEDS: INSULIN GLARGINE 100 UNITS/ML 10 ML VIAL SUBCUT SCH ×2 (08:49→21:57)
[2019-01-01] MEDS ORDERED: DILTIAZEM HCL 300 MG CAP.SR.24H PO SCH (09:00)
[2019-01-01] MEDS: MINERAL OIL/PETROLATUM,WHITE 113 GM CREAM.GM. TP SCH (09:16)
[2019-01-01] MEDS ORDERED: POTASSIUM CHLORIDE 20 MEQ TAB.PRT.SR PO ONE ×2 (10:00→16:00)
[2019-01-01 11:22] VITALS: BP_SYST 161
[2019-01-01 15:05] VITALS: BP_SYST 136
[2019-01-01] MEDS: D5W 1,000 ML IV SCH (15:30)
[2019-01-01 20:00] VITALS: BP_SYST 149
[2019-01-01] MEDS: FAMOTIDINE PF 20 MG/2 ML VIAL IVP SCH (21:50)
[2019-01-02 00:37] VITALS: BP_SYST 148
[2019-01-02] MEDS: LevALBUTEROL HCL 1.25 MG/0.5 ML *CONC.* VIAL.NEB (XOPENEX CONC.) INH SCH ×4 (01:14→18:55)
[2019-01-02 06:42] LABS: BASOPHILS % (AUTO) 0.5 % (0.0-2.0); EOSINOPHILS # (AUTO) 0.3 K/uL (0.0-0.4); EOSINOPHILS % (AUTO) 3.5 % (0.0-4.0); HEMATOCRIT 36.4 % (36-54); HEMOGLOBIN 12.3 g/dL (14.0-18.0); LYMPHOCYTES # (AUTO) 0.8 K/uL (1.0-5.5); LYMPHOCYTES % (AUTO) 10.7 % (20.5-51.5); MEAN CORPUSCULAR HEMOGLOBIN 32 pg (27-31); MEAN CORPUSCULAR HGB CONC 34 % (32-36); MEAN CORPUSCULAR VOLUME 93 fL (79.0-98.0); MONOCYTES # (AUTO) 0.6 K/uL (0.0-1.0); MONOCYTES % (AUTO) 8.2 % (1.7-9.3); NEUTROPHILS # (AUTO) 5.6 K/uL (1.8-7.7); NEUTROPHILS % (AUTO) 77.1 % (40.0-70.0); PLATELET COUNT (AUTO) 131 K/uL (130-430); RED BLOOD CELL COUNT(AUTO) 3.92 MIL/uL (4.2-6.2); RED CELL DISTRIBUTION WIDTH 13.8 % (9.0-15.0); WHITE BLOOD COUNT (AUTO) 7.3 K/uL (4.8-10.8)
[2019-01-02] MEDS: METOPROLOL TARTRATE 50 MG TABLET PO SCH ×3 (06:58→22:58)
[2019-01-02] MEDS: INSULIN REGULAR, HUMAN 100 UNITS/ML, 10 ML VIAL (humuLIN R) SUBCUT PRN ×4 (07:04→21:55)
[2019-01-02 07:10] LABS: CALCIUM 8.6 mg/dL (8.4-11.0); CREATININE 1.28 mg/dL (0.55-1.30); POTASSIUM 3.2 mmol/L (3.5-5.1)
[2019-01-02 08:00] VITALS: BP_SYST 156
[2019-01-02] MEDS ORDERED: POTASSIUM CHLORIDE 20 MEQ TAB.PRT.SR PO ONE (08:30)
[2019-01-02] MEDS: DILTIAZEM CD 180 MG, DILTIAZEM CD 120 MG PO SCH ×2 (09:02)
[2019-01-02] MEDS: ENOXAPARIN SODIUM 40 MG/0.4 ML SYRINGE SUBCUT SCH (09:05)
[2019-01-02] MEDS: INSULIN GLARGINE 100 UNITS/ML 10 ML VIAL SUBCUT SCH ×2 (09:10→21:56)
[2019-01-02] MEDS: D5W 1,000 ML IV SCH (09:18)
[2019-01-02] MEDS: MINERAL OIL/PETROLATUM,WHITE 113 GM CREAM.GM. TP SCH (09:19)
[2019-01-02 10:01] VITALS: BP_SYST 156
[2019-01-02 11:28] VITALS: BP_SYST 157
[2019-01-02 15:24] VITALS: BP_SYST 115
[2019-01-02 20:00] VITALS: BP_SYST 156
[2019-01-02] MEDS: FAMOTIDINE PF 20 MG/2 ML VIAL IVP SCH (21:57)
[2019-01-03 00:37] VITALS: BP_SYST 156
[2019-01-03] MEDS: LevALBUTEROL HCL 1.25 MG/0.5 ML *CONC.* VIAL.NEB (XOPENEX CONC.) INH SCH ×4 (00:45→19:30)
[2019-01-03] MEDS: D5W 1,000 ML IV SCH (06:21)
[2019-01-03] MEDS: METOPROLOL TARTRATE 50 MG TABLET PO SCH ×3 (06:24→20:19)
[2019-01-03 08:00] VITALS: BP_SYST 167
[2019-01-03] MEDS: DILTIAZEM CD 180 MG, DILTIAZEM CD 120 MG PO SCH ×2 (08:51)
[2019-01-03] MEDS: ENOXAPARIN SODIUM 40 MG/0.4 ML SYRINGE SUBCUT SCH (08:52)
[2019-01-03] MEDS: INSULIN GLARGINE 100 UNITS/ML 10 ML VIAL SUBCUT SCH ×2 (08:55→20:23)
[2019-01-03] MEDS: MINERAL OIL/PETROLATUM,WHITE 113 GM CREAM.GM. TP SCH (08:56)
[2019-01-03 11:24] VITALS: BP_SYST 185
[2019-01-03] MEDS: METOPROLOL TARTRATE 5 MG/5 ML VIAL IVP PRN (11:46)
[2019-01-03] MEDS: INSULIN REGULAR, HUMAN 100 UNITS/ML, 10 ML VIAL (humuLIN R) SUBCUT PRN ×3 (11:50→20:21)
[2019-01-03] MEDS: ACETAMINOPHEN 650 MG/20.3 ML UDC GT PRN (14:23)
[2019-01-03 15:34] VITALS: BP_SYST 138
[2019-01-03 20:00] VITALS: BP_SYST 143
[2019-01-03] MEDS: FAMOTIDINE PF 20 MG/2 ML VIAL IVP SCH (20:18)
[2019-01-04] MEDS: LevALBUTEROL HCL 1.25 MG/0.5 ML *CONC.* VIAL.NEB (XOPENEX CONC.) INH SCH ×4 (00:55→19:30)
[2019-01-04] MEDS: D5W 1,000 ML IV SCH ×2 (01:08→22:24)
[2019-01-04] MEDS: METOPROLOL TARTRATE 50 MG TABLET PO SCH ×3 (06:11→20:56)
[2019-01-04 06:34] VITALS: BP_SYST 141
[2019-01-04 07:18] LABS: CALCIUM 8.7 mg/dL (8.4-11.0); CREATININE 1.29 mg/dL (0.55-1.30); POTASSIUM 3.1 mmol/L (3.5-5.1)
[2019-01-04 08:00] VITALS: BP_SYST 162
[2019-01-04] MEDS: ENOXAPARIN SODIUM 40 MG/0.4 ML SYRINGE SUBCUT SCH (08:42)
[2019-01-04] MEDS: INSULIN GLARGINE 100 UNITS/ML 10 ML VIAL SUBCUT SCH ×2 (08:44→20:58)
[2019-01-04] MEDS: DILTIAZEM CD 180 MG, DILTIAZEM CD 120 MG PO SCH ×2 (08:45)
[2019-01-04] MEDS: MINERAL OIL/PETROLATUM,WHITE 113 GM CREAM.GM. TP SCH (08:46)
[2019-01-04] MEDS ORDERED: POTASSIUM CHLORIDE 20 MEQ TAB.PRT.SR PO ONE (09:45)
[2019-01-04 11:16] VITALS: BP_SYST 160
[2019-01-04] MEDS: INSULIN REGULAR, HUMAN 100 UNITS/ML, 10 ML VIAL (humuLIN R) SUBCUT PRN ×3 (11:56→20:59)
[2019-01-04] MEDS ORDERED: POTASSIUM CHLORIDE 20 MEQ/PKT PACKET PO ONE (12:45)
[2019-01-04 15:22] VITALS: BP_SYST 151
[2019-01-04 20:00] VITALS: BP_SYST 148
[2019-01-04] MEDS: FAMOTIDINE PF 20 MG/2 ML VIAL IVP SCH (20:55)
== END 2019-01-04 21:25 | DRG 870 ==
LOC: SED 13:19 → SIC 13:34 → STU 12-29 12:14 → SMU 01-01 16:04
PROVIDERS: ADMIT Family Medicine; ATTEND Family Medicine
PROC: 5A1955Z Respiratory Ventilation, Greater than 96 Consecutive Hours (ICD-10-PCS; principal; 2018-12-12)
PROC: 0BH17EZ Insertion of Endotracheal Airway into Trachea, Via Natural or Artificial Opening (ICD-10-PCS; 2018-12-12)
PROC: 02HV33Z Insertion of Infusion Device into Superior Vena Cava, Percutaneous Approach (ICD-10-PCS; 2018-12-15)
PROC: B548ZZA Ultrasonography of Superior Vena Cava, Guidance (ICD-10-PCS; 2018-12-15)
PROC: 5A1D70Z Performance of Urinary Filtration, Intermittent, Less than 6 Hours Per Day (ICD-10-PCS; 2018-12-16)
PROC: 5A1D70Z Performance of Urinary Filtration, Intermittent, Less than 6 Hours Per Day (ICD-10-PCS; 2018-12-17)
PROC: 02HV33Z Insertion of Infusion Device into Superior Vena Cava, Percutaneous Approach (ICD-10-PCS; 2018-12-24)
PROC: B548ZZA Ultrasonography of Superior Vena Cava, Guidance (ICD-10-PCS; 2018-12-24)
DX: A41.9 Sepsis, unspecified organism (principal); G93.41 Metabolic encephalopathy; J15.9 Unspecified bacterial pneumonia; J96.01 Acute respiratory failure with hypoxia; N17.0 Acute kidney failure with tubular necrosis; R65.21 Severe sepsis with septic shock; E43 Unspecified severe protein-calorie malnutrition; I21.A1 Myocardial infarction type 2; S06.0X9A Concussion with loss of consciousness of unspecified duration, initial encounter; E87.0 Hyperosmolality and hypernatremia; E87.1 Hypo-osmolality and hyponatremia; I47.1 Supraventricular tachycardia; M62.82 Rhabdomyolysis; N39.0 Urinary tract infection, site not specified; D69.6 Thrombocytopenia, unspecified; E11.65 Type 2 diabetes mellitus with hyperglycemia; E87.6 Hypokalemia; E88.09 Other disorders of plasma-protein metabolism, not elsewhere classified; S05.12XA Contusion of eyeball and orbital tissues, left eye, initial encounter; E11.42 Type 2 diabetes mellitus with diabetic polyneuropathy; I48.2 Chronic atrial fibrillation; F12.90 Cannabis use, unspecified, uncomplicated; I10 Essential (primary) hypertension; R13.10 Dysphagia, unspecified; Y95 Nosocomial condition; M13.862 Other specified arthritis, left knee; Z68.29 Body mass index [BMI] 29.0-29.9, adult; Z93.1 Gastrostomy status; W18.09XA Striking against other object with subsequent fall, initial encounter; Y93.01 Activity, walking, marching and hiking; Y92.89 Other specified places as the place of occurrence of the external cause; Y99.8 Other external cause status; Z79.899 Other long term (current) drug therapy
CPT/HCPCS: 36415; 36600; 70450-TC; 70486-TC; 71045; 71250-TC; 74018; 76700-TC; 80048; 80053; 80061; 80074; 80202-TC; 80307; 81000-TC; 82150-TC; 82550-TC; 82553-TC; 82803-TC; 82962; 83605; 83690-TC; 83735-TC; 83880; 84100-TC; 84443-TC; 84484; 85025; 85379; 85384-TC; 85610-TC; 85730-TC; 87040-TC; 87070-TC; 87081; 87086; 87205-TC; 90935; 90937; 92526-GN; 92610-GN; 93005; 93306; 94002; 94003; 94640; 94760; 96361; 96365; 96367; 96375; 96376; 97110-GP; 97530-GP; 99291; 99292; A6209; C1751; G0378; G0481; G0482; J0153; J0456; J0692; J0696; J1200; J1450; J1644; J1650; J1815; J2060; J2250; J2270; J2405; J2543; J2597; J2704; J3370; J3480; J3490; J7030; J7040; J7042; J7050; J7060; J7120; J7612